=== PATIENT | male | born 1940 | race Caucasian/White ===

== ENCOUNTER → 2016-09-02 | Outpatient (CLI) | payer OTHER ==
[~2016-09-02] MED LIST: ACET-1311 PO; ASPEC325 PO; ATEN-173 PO; CIPR-255 PO; CLR10 PO; DOCU-94 PO; FINA5TAB PO; IBUP-1050 PO; LISI-461 PO; MULT-506 PO; OMEG10007 PO; POLY335019 PO; SIMV80TA2 PO; TAMS0.4C38 PO; TRIATAB3 PO
[2016-09-02 12:11] LABS: ALT/SGPT 37 U/L (12-78); BLOOD UREA NITROGEN 16 mg/dl (7-18); CARBON DIOXIDE 28 mmol/L (21-32); CHLORIDE 94 mmol/L (98-107); CHOLESTEROL 132 mg/dl (0-200); CREATININE 0.82 mg/dl (0.60-1.40); GLUCOSE 122 mg/dl (70-99); SODIUM 128 mmol/L (136-145); TRIGLYCERIDES 119 mg/dl (0-150); VERY LOW DENSITY LIPOPROT CALC 24 mg/dl
[2016-09-02 12:14] LABS: ALB/GLOB RATIO 1.2 (0.9-2); ALKALINE PHOSPHATASE 70 U/L (45-117); AST/SGOT 31 U/L (15-37); CALCIUM 8.6 mg/dl (8.5-10.1); HDL CHOLESTEROL 44 mg/dl; LDL CHOLESTEROL CALCULATED 64 mg/dl
== END | disposition home or self-care (01) ==
LOC: C.LABPVFM 07:19
PROVIDERS: ATTEND Nurse Practitioner
DX: I10 Essential (primary) hypertension (principal); E78.5 Hyperlipidemia, unspecified

== ENCOUNTER 2017-04-08 16:19 | Emergency (ER) | payer OTHER ==
[~2017-04-08] VITALS: Ht 167.6 cm; Wt 89.5 kg
[2017-04-08 16:22] VITALS: BP 164/95; TEMP 36.7; Ht 167.6 cm; Wt 89.5 kg
[2017-04-08] MEDS ORDERED: IBUPROFEN 200 MG TAB PO STA (16:40)
--- NOTE | 2017-04-08 16:57 | DIAGNOSTIC IMAGING REPORT ---
L ELBOW MIN 3 VIEWS ROUTINE CLINICAL HISTORY: Left elbow pain COMPARISON: None. DISCUSSION: There is a supracondylar process. No acute fractures are visualized. There are tiny calcific densities in the region of the distal triceps tendon. There is a small corticated density adjacent to the lateral epicondyle of distal humerus. This is felt to be old. IMPRESSION: 1. No acute fractures 2. Small age-indeterminate calcific densities in the region of the distal triceps tendon 3. Supracondylar process Electronically signed by: Luciano Matthews M.D. 04/08/2017 4:56 PM Dictated Date/Time: 04/08/2017 4:54 PM
[2017-04-08 17:49] VITALS: PULSE 62; O2SAT 95
--- NOTE | 2017-04-08 22:58 | EMERGENCY ROOM VISIT NOTE ---
History Report prepared by Alyse: Gloria Martinez Under the Supervision of: Dr. Quentin Whitfield M.D. First contact with patient: 16:35 Chief Complaint: ELBOW PAIN/INJURY Stated Complaint: LEFT ELBOW History of Present Illness The patient is a 76 year old male who presents to the Emergency Room with complaints of resolved left elbow pain that started prior to arrival. He reports he was on a ladder hanging [place] lights earlier today, when he reached out to steady himself, and heard a "pop". He did not injure anything else and states his elbow feels much better here in the ED, rating his discomfort as a 0/10 in severity. He denies any weakness or numbness in his left arm or hand. He can still move his fingers and has normal sensation in his left arm and hand. He does take daily medication for hypertension. 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 A total of 6 systems reviewed and were otherwise negative. Past Medical & Surgical Medical Problems: (1) Hypertension (2) Lumbar stenosis Family History Diabetes mellitus Heart disease Hypertension Social History Smoking Status: Never Smoker Alcohol Use: none Drug Use: none Marital Status: Housing Status: lives with family Occupation Status: retired Current/Historical Medications Scheduled Acetaminophen (Tylenol), 650 MG PO PRN Aspirin Enteric Coated (Ecotrin Or Generic *), 325 MG PO QAM Atenolol (Tenormin), 25 MG PO HS Ciprofloxacin Hcl (Cipro), 500 MG PO BID Docusate Sodium (Colace), 1 CAP PO HS Finasteride (Proscar), 5 MG PO QAM Fish Oil ([place]-3), 1 CAP PO QAM Ibuprofen (Advil), 400 MG PO PRN Lisinopril (Lisinopril), 1 TAB PO DAILY Loratadine (Claritin), 10 MG PO QAM Multivitamin (Multivitamin), 1 TAB PO QAM Polyethylene Glycol 3350 (Miralax), 17 GM PO QAM Simvastatin (Zocor), 80 MG PO QPM Tamsulosin Hcl (Flomax), 0.4 MG PO QPM Triamterene/Hctz (Triamterene/Hctz 37.5-25MG), 1 TAB PO DAILY Allergies Coded Allergies: No Known Allergies (Unverified , 02/02/16) Physical Exam Vital Signs Date Time Temp Pulse Resp B/P (MAP) Pulse Ox O2 Delivery O2 Flow Rate FiO2 04/08/17 17:49 62 20 95 04/08/17 16:22 36.7 66 18 164/95 95 Room Air Physical Exam Constitutional: Vital signs reviewed. Respiratory: Clear to auscultation bilaterally. Breath sounds are equal bilaterally. Cardiovascular: Regular rate and rhythm. No rubs or gallops. Musculoskeletal: Tenderness over left olecranon process with soft tissue swelling. Normal distal pulse. No peripheral edema. No lower extremity tenderness. Integumentary: No cyanosis. Neurological: The patient is awake and alert. No focal deficits. Motor and sensation intact throughout left arm. Psychiatric: Normal affect. Medical Decision & Procedures ER Provider Diagnostic Interpretation: Radiology results as stated below per my review and the radiologist's interpretation: L ELBOW MIN 3 VIEWS ROUTINE CLINICAL HISTORY: Left elbow pain COMPARISON: None. DISCUSSION: There is a supracondylar process. No acute fractures are visualized. There are tiny calcific densities in the region of the distal triceps tendon. There is a small corticated density adjacent to the lateral epicondyle of distal humerus. This is felt to be old. IMPRESSION: 1. No acute fractures 2. Small age-indeterminate calcific densities in the region of the distal triceps tendon 3. Supracondylar process Electronically signed by: Luciano Matthews M.D. 04/08/2017 4:56 PM Medications Administered Medications (Trade) Dose Ordered Sig/Tu Route Start Time Stop Time Status Last Admin Dose Admin Ibuprofen (Advil Tab) 400 mg NOW STAT PO 04/08/17 16:40 04/08/17 16:41 DC 04/08/17 16:46 400 MG ED Course 1637: The patient was evaluated in room D5. A complete history and physical exam was performed. 1640: Ibuprofen 400 mg PO. 1712: I reevaluated the patient. He is feeling well. I discussed his test results and discharge instructions and he will follow up with his Orthopedist. Medical Decision This is a 76-year-old male who presents with elbow pain. Differential diagnosis includes fracture, dislocation, strain, tendon injury. I did perform a limited focused review of portions of the patient's old chart on the electronic medical record. The patient has had no recent pertinent visits to this hospital. I did evaluate the patient as noted above. He is tender over the lacunar on process. There is no obvious deformity to the elbow. He has no other injury to the arm. He is able to extend and flex the elbow without any difficulty. I did order and personally review the patient's elbow x-rays as described above. I did discuss the test results with the patient. I did recommend the patient keep his arm in a sling until he could follow up with a orthopedic physician. He was discharged in good condition. He was given a sling. Medication Reconcilliation Current Medication List: was personally reviewed by me Blood Pressure Screening Patient's blood pressure: Elevated blood pressure Blood pressure disposition: Referred to PCP Impression Primary Impression: Injury of left elbow Scribe Attestation The scribe's documentation has been prepared under my direct and personally reviewed by me in its entirety. I confirm that the note above accurately reflects all work, treatment, procedures, and medical decision making performed by me. Departure Information Dispostion Home / Self-Care Referrals Huyen Dickens C.R.N.P (PCP) Patient Instructions My [facility] Additional Instructions You have been examined and treated today on an emergency basis only. This is not a substitute for, or an effort to provide, complete comprehensive medical care. It is impossible to recognize and treat all injuries or illnesses in a single emergency department visit. It is therefore important that you follow up closely with your orthopedic doctor. Call as soon as possible for an appointment. Return for worsening symptoms or if you develop swelling or pain to your hand or forearm or any other concerning symptoms. Keep your sling on until cleared by orthopedics. Problem Qualifiers Primary Impression: Injury of left elbow Encounter type: initial encounter Qualified Codes: S59.902A - Unspecified injury of left elbow, initial encounter
== END 2017-04-08 17:51 | disposition home or self-care (01) ==
LOC: C.EDB 16:20 → C.EDD 17:51
DX: S59.902A Unspecified injury of left elbow, initial encounter (principal); X58.XXXA Exposure to other specified factors, initial encounter; I10 Essential (primary) hypertension; Z79.82 Long term (current) use of aspirin; Z79.899 Other long term (current) drug therapy; Z83.3 Family history of diabetes mellitus; Z82.49 Family history of ischemic heart disease and other diseases of the circulatory system

== ENCOUNTER → 2017-09-15 | Outpatient (CLI) | payer OTHER ==
[2017-09-15 13:37] LABS: HEMOGLOBIN A1C 6.3 % (4.5-5.6)
[2017-09-15 13:50] LABS: BLOOD UREA NITROGEN 18 mg/dl (7-18); CALCIUM 8.6 mg/dl (8.5-10.1); CARBON DIOXIDE 26 mmol/L (21-32); CHOLESTEROL 142 mg/dl (0-200); CREATININE 0.93 mg/dl (0.60-1.40); GLUCOSE 110 mg/dl (70-99); POTASSIUM 3.9 mmol/L (3.5-5.1); SODIUM 128 mmol/L (136-145)
[2017-09-15 13:54] LABS: LDL CHOLESTEROL CALCULATED 71 mg/dl
== END | disposition home or self-care (01) ==
LOC: C.LABPVFM 07:26
PROVIDERS: ATTEND Nurse Practitioner
DX: I10 Essential (primary) hypertension (principal); E78.5 Hyperlipidemia, unspecified; R73.01 Impaired fasting glucose

== ENCOUNTER 2022-12-03 14:00 | Inpatient (IN) ==
[2022-12-03 14:24] LABS: Basophils # (auto) 0.04 K/uL (0-0.2); Basophils % (auto) 0.4 %; Eosinophils % (auto) 2.2 %; Hematocrit (blood only) 41.7 % (42.0-52.0); Hemoglobin 14.9 g/dl (14.0-18.0); Immature Granulocytes # (auto) 0.06 K/uL (0.01-0.20); Immature Granulocytes % (auto) 0.7 %; Lymphocytes # (auto) 1.53 K/uL (1.2-3.4); Lymphocytes % (auto) 16.6 %; Mean Corpuscular Hgb Conc 35.7 g/dL (32.0-36.0); Mean Corpuscular Volume 89.5 fL (80.0-100.0); Monocytes # (auto) 1.11 K/uL (0.11-0.59); Monocytes % (auto) 12.1 %; Neutrophils # (auto) 6.27 K/uL (1.40-6.50); Platelet Count 202 K/uL (130-400); RDW Coefficient of Variation 13.2 % (11.5-14.5); Red Blood Count 4.66 M/uL (4.70-6.10); White Blood Count 9.21 K/ul (4.8-10.8)
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
[2022-12-03 14:43] LABS: Albumin Globulin Ratio 1.4 (0.9-2); Albumin Level 4.6 gm/dl (3.4-5.0); BUN Creatinine Ratio 12.4 (10-20); Bilirubin,Total 0.7 mg/dl (0.2-1.0); Calcium 9.6 mg/dl (8.6-10.3); Creatinine Clr Calc Pharmacy 68.8 ml/min; Est GFR (African American) 93.6 ml/min; Est GFR (Non-African American) 80.8 ml/min; Globulin 3.2 gm/dl (2.5-4.0); Magnesium 1.6 mg/dl (1.7-2.4); Potassium 3.9 mmol/L (3.5-5.1); Total Protein 7.8 gm/dl (6.0-8.3)
[2022-12-03 14:48] LABS: Troponin I High Sensitivity 34.5 pg/ml (0-20)
[2022-12-03 15:23] LABS: Partial Thromboplastin Time 27.1 Seconds (21.0-31.0); Prothrombin Time 11.4 Seconds (9.0-12.0)
[2022-12-03] MEDS: MAGNESIUM SULFATE / D5W 1 GM/100 ML BAG IV SCH ×2 (15:31→16:14)
[2022-12-03 15:58] LABS: Lyme Ab IgG w/WB Rflx Positive (Negative); Lyme Ab IgM w/WB Rflx Equivocal (Negative)
--- NOTE | 2022-12-03 15:58 | Electrocardiogram Report ---
Test Reason : Blood Pressure : / mmHG Vent. Rate : 048 BPM Atrial Rate : 000 BPM P-R Int : 000 ms QRS Dur : 088 ms QT Int : 476 ms P-R-T Axes : 000 -12 076 degrees QTc Int : 425 ms Atrial fibrillation with slow ventricular response with premature ventricular or aberrantly conducted complexes Left ventricular hypertrophy Nonspecific ST abnormality Anterolateral leads Abnormal ECG When compared with ECG of 05-OCT-2018 08:33, Atrial fibrillation has replaced Sinus rhythm Left ventricular hypertrophy now present Nonspecific ST abnormality now present Confirmed by Onesimo Geller ([id number]) on 12/03/2022 3:58:25 PM Referred By: Confirmed By:Onesimo Geller
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
[2022-12-03] MEDS ORDERED: ATROPINE SULFATE 0.1 MG/ML 10ML SYR IV PRN (16:43)
[2022-12-03] MEDS: amLODIPine BESYLATE 5 MG TAB PO SCH (17:00)
[2022-12-03 17:33] LABS: Appearance Urine Clear (Clear); Bilirubin Urine Negative (Negative); Blood Urine Negative (Negative); Color Urine Yellow; Glucose Urine UA Negative (Negative); Ketones Urine Negative (Negative); Leukocyte Esterase Urine Negative (Negative); Nitrite Urine Negative (Negative); Protein Urine Negative (Negative); Specific Gravity Urine 1.004 (1.000-1.030); Urobilinogen Urine Negative (Negative); pH Urine 6.5 (4.5-7.5)
[2022-12-03] MEDS ORDERED: POLYETHYLENE (MIRALAX) 17 GM PACK PO PRN (18:44)
[2022-12-03] MEDS ORDERED: ACETAMINOPHEN 325 MG TAB PO PRN (18:44)
[2022-12-03] MEDS ORDERED: ALBUTEROL HFA 8 GM INHALER INH PRN (18:44)
[2022-12-03] MEDS ORDERED: cefTRIAXone SODIUM 2,000 MG in DEXTROSE 5% 50 ML IV SCH (19:00)
[2022-12-03 19:45] LABS: BUN Creatinine Ratio 12.3 (10-20); Calcium 9.4 mg/dl (8.6-10.3); Creatinine Clr Calc Pharmacy 73.8 ml/min; Est GFR (African American) 97.3 ml/min; Est GFR (Non-African American) 83.9 ml/min; Potassium 3.8 mmol/L (3.5-5.1)
[2022-12-03] MEDS: hydrALAZINE HCL 25 MG TAB PO SCH (20:02)
[2022-12-03] MEDS: APIXABAN 5 MG TABLET PO SCH (20:02)
[2022-12-03] MEDS: lisinopril 20 MG TAB PO SCH (20:02)
[2022-12-03] MEDS ORDERED: DOCUSATE SODIUM 100 MG CAP PO SCH (21:00)
[2022-12-03] MEDS ORDERED: SIMVASTATIN 80 MG TAB PO SCH (21:00)
[2022-12-03 23:38] LABS: BUN Creatinine Ratio 10.1 (10-20); Creatinine Clr Calc Pharmacy 50.2 ml/min; Est GFR (African American) 66.5 ml/min; Est GFR (Non-African American) 57.3 ml/min; Potassium 3.8 mmol/L (3.5-5.1)
[2022-12-04 06:15] LABS: Basophils # (auto) 0.05 K/uL (0-0.2); Basophils % (auto) 0.5 %; Eosinophils # (auto) 0.36 K/uL (0-0.50); Eosinophils % (auto) 3.4 %; Hematocrit (blood only) 37.6 % (42.0-52.0); Hemoglobin 13.5 g/dl (14.0-18.0); Immature Granulocytes % (auto) 0.9 %; Lymphocytes # (auto) 1.12 K/uL (1.2-3.4); Lymphocytes % (auto) 10.5 %; Mean Corpuscular Hemoglobin 32.4 pg (25.0-34.0); Mean Corpuscular Hgb Conc 35.9 g/dL (32.0-36.0); Mean Corpuscular Volume 90.2 fL (80.0-100.0); Mean Platelet Volume 9.5 fL (9.4-12.4); Monocytes % (auto) 11.2 %; Neutrophils # (auto) 7.87 K/uL (1.40-6.50); Neutrophils % (auto) 73.5 %; Platelet Count 196 K/uL (130-400); RDW Coefficient of Variation 13.2 % (11.5-14.5); RDW Standard Deviation 43.2 fL (36.4-46.3); Red Blood Count 4.17 M/uL (4.70-6.10)
[2022-12-04 06:24] LABS: Albumin Globulin Ratio 1.4 (0.9-2); Albumin Level 3.9 gm/dl (3.4-5.0); BUN Creatinine Ratio 16.8 (10-20); Bilirubin,Total 0.5 mg/dl (0.2-1.0); Calcium 9.2 mg/dl (8.6-10.3); Creatinine Clr Calc Pharmacy 62.3 ml/min; Est GFR (African American) 87.3 ml/min; Est GFR (Non-African American) 75.3 ml/min; Globulin 2.7 gm/dl (2.5-4.0); Magnesium 1.7 mg/dl (1.7-2.4); Potassium 3.9 mmol/L (3.5-5.1); Total Protein 6.6 gm/dl (6.0-8.3)
[2022-12-04] MEDS: APIXABAN 5 MG TABLET PO SCH (08:24)
[2022-12-04] MEDS: lisinopril 20 MG TAB PO SCH (08:25)
[2022-12-04] MEDS: hydrALAZINE HCL 25 MG TAB PO SCH (08:26)
[2022-12-04] MEDS: amLODIPine BESYLATE 5 MG TAB PO SCH (08:58)
[2022-12-04] MEDS ORDERED: ASPIRIN 81 MG ECTAB PO SCH (09:00)
[2022-12-04] MEDS ORDERED: MAGNESIUM OXIDE 400 MG TAB PO SCH (09:00)
[2022-12-04] MEDS ORDERED: FUROSEMIDE 20 MG TAB PO SCH (09:00)
--- NOTE | 2022-12-04 09:30 | XCELERA ---
[id number]
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
--- NOTE | 2022-12-04 13:15 | Discharge Summary ---
Date of Service December 04, 2022 Admission HPI Per Admitting Provider Santana Noyola is a 82-year-old male with a past medical history of CAD, hypertension, hyperlipidemia who is referred from his PCP for bradycardia and irregular heartbeat with no history of A-fib. Puma reports he is here for afib that he didn't realize he had and low sodium which was noted as an outpatient. Seems to have a hard time catching his breath last week or two. Was on prednisone for a viral URI 4 weeks ago, that mostly improved No chest pain or chest pressure NO SoB at rest, easily fatigued and some shortness of breath with exertion but ntoes it was worse with the smoke from the [facility] NO syncope or presyncope No fevers/chills/night sweats No tick bites No history of lyme disease, many tick bites in the past No history of bleeding problems Medical History: Reviewed Medications: Reviewed Surgical History: Reviewed Family history: Reviewed Allergies: Reviewed Social History: No tobacco use history Code Status: Full Code Admission Exam Per Admitting Provider General: A&Ox3. NAD. Cooperative. HEENT: Atraumatic, normocephalic. Vision and hearing grossly Pulm: CTAB A&P. -wheezes, -rales, -rhonchi. Symmetrical chest rise. No increased work of breathing. No respiratory distress. Cardiac: irir, bradycardic. Radial pulses intact and symmetrical. Abdominal: Nontender, nondistended, soft. BS present. Extremities: Moves all extremities equally. No rashes Principal Diagnosis New onset atrial fibrillation with slow ventricular response Discharge Exam General: Well-appearing, NAD Cardiovascular: Bradycardic, irregularly irregular rhythm, no M/R/G Pulmonary: CTAB, no W/R/R Abdomen: Soft, NT/ND, no guarding Extremities: Moving all extremities, ambulates with use of braces to help with bilateral foot drop Integumentary: No suspicious rash or lesion on exposed skin Neurologic: AAOx3, no focal deficits Psychiatric: Appropriate mood/affect Discharge Data Allergies Allergy/AdvReac Type Severity Reaction Status Date / Time No Known Allergies Allergy Verified 12/03/22 09:33 Consultations 12/03/22 15:41 ED Decision to Admit Stat 12/04/22 09:34 Consult Cardiology Routine Hospital Course (1) Atrial fibrillation with slow ventricular response: (2) Bradycardia: (3) Borderline results on serologic testing for Lyme disease: (4) CARRERA (dyspnea on exertion): (5) Hypertension: (6) Hyperlipidemia: (7) Hyponatremia: Plan Santana Noyola is a 82-year-old male with a past medical history of CAD, hypertension, hyperlipidemia who is referred from his PCP for bradycardia and irregular heartbeat with no history of A-fib. He was found to be in AF with slow ventricular response. See below. Admitted 12/03/22 and discharged 12/04/22. A-fib, new onset with slow ventricular response - Possible etiology of dyspnea on exertion EKG: A-fib with slow ventricular response. QTc 425. Nonspecific ST changes without territorial elevations/depression. Eliquis started - continue on discharge High-sensitivity troponin 34.5, repeat 34.2 Echo 12/04/22 notable for: Normal EF of 55 to 60%, normal LV structure and function, mild to moderate aortic regurgitation, moderate mitral regurgitation, mild tricuspid regurgitation Lyme IgG is positive with equivocal IgM. 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 Full Western blot pending. - Atenolol discontinued - Has appropriate increase in HR with exertion - Cardiology consulted: [facility] outpatient, continue Eliquis, stop ASA - F/u with cardiology Dr. 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 Treat for Lyme and monitor [facility]. If remains slow, may not have reversible conduction abnormality - Atenolol discontinued - F/u with cardiology Dr. Geller outpatient HTN - Discontinue atenolol given above bradycardia - Started and continue amlodipine added 5mg Continue lisinopril 20mg BID, hydralazine 75mg BID HLD Continue statin Acute on Chronic Hyponatremia Baseline sodium appears around [id number]. On admission sodium 124 with BSG 126. Improved to baseline 130 on fluid restriction inpatient - Has seen [facility] nephrology before, and w/ polydipsia in the past, Puma's notes he has been drinking a lot of water/gatorade lately - Urine sodium and osm would be c/w possible SIADH - Discussed minimizing salt to minimize drinking excessive fluids Total Time Total Time Spent Total Time Spent (In Minutes): 45 Total Time Includes: Examination of the Patient, Discharge Planning, Medication Reconciliation, Communication With Other Providers and Other (Review of notes, labs, tests) Discharge Plan Discharge Items Patient Disposition: Home - Self-Care Reason For Visit: AFIB, BRADYCARDIA Discharge Diagnosis: Atrial fibrillation with slow heart rate Activity: Resume your previous activity Non-emergency contact: Primary Care Provider and Motorboat Mechanic Inboard Call non-emergency contact if: your symptoms worsen Follow-up/Referrals: Huyen Dickens CRNP [Primary Care Provider] - 12/13/22 10:30 am (Follow up scheduled on 12/13/22 @ 10:30am) Onesimo Geller MD [Physician] - Diet: Regular Addtl Attending Provider Instructions: Take the new blood thinner medication (Eliquis) for the atrial fibrillation and stop the aspirin. The aspirin is no longer needed. Take the antibiotic doxycycline to treat Lyme disease. Take the new blood pressure medication amlodipine in addition to your other blood pressure medications and monitor your blood pressures. Stop the atenolol. Monitor your salt and fluid intake. You will be set up with a heart monitor next week. If you do not have that coordinated by Tuesday, call your PCP. You also will have a follow up appointment with the corrugator helper. If you do not have that coordinated date by Tuesday, call your PCP's office. Pending Studies at Discharge: No Stand-Alone Forms: My [facility] [employer], Smoking Cessation Medications and DC Order Prescriptions: New Eliquis 5 mg Tablet 5 mg PO BID Qty: 60 1RF amlodipine [Norvasc] 5 mg Tablet 5 mg PO QAM Qty: 30 1RF doxycycline hyclate 100 mg tablet 100 mg PO BID 21 Days Qty: 42 0RF Continued simvastatin 80 mg tablet See Rx Instructions .ROUTE .COMPLEX Qty: 90 3RF Dose Instruction: Take 1 tablet by mouth in the evening Rx Instructions: Take 1 tablet by mouth in the evening albuterol sulfate 90 mcg/actuation HFA aerosol inhaler 2 puff inhalation QID PRN (Reason: shortness of breath or wheezing) Qty: 6.7 3RF [id number] serr [Osteo Bi-Flex (5-Loxin)] 1,500-400-100 mg-unit-mg tablet 1 tab PO DAILY Rx Instructions: give after food/meal magnesium oxide 400 mg magnesium capsule 0 mg PO DAILY Rx Instructions: says he'll be getting a new script for this one lisinopril 20 mg tablet 20 mg PO BID Qty: 60 2RF furosemide 20 mg tablet 20 mg PO DAILY Qty: 30 2RF Rx Instructions: pt says they plan to increase to 40 mg hydralazine 25 mg tablet 75 mg PO BID Qty: 90 2RF polyethylene glycol 3350 [Miralax] 17 gram Powder In Packet 17 g PO QAM PRN (Reason: Constipation) docusate sodium [Colace] 100 mg Capsule 100 mg PO HS multivitamin Capsule 1 cap PO QAM omega 2-flm-jks-fish oil [Fish Oil] 1,000 mg (120 mg-180 mg) Capsule 2 cap PO QAM acetaminophen [Tylenol] 325 mg Tablet 650 mg PO Q6H PRN (Reason: Pain) Discontinued atenolol 25 mg tablet See Rx Instructions .ROUTE .COMPLEX Qty: 90 3RF Dose Instruction: TAKE 1 TABLET BY MOUTH ONCE DAILY IN THE MORNING Rx Instructions: TAKE 1 TABLET BY MOUTH ONCE DAILY IN THE MORNING aspirin 81 mg Tablet,Delayed Release (Dr/Ec) 81 mg PO QAM Discharge Orders: Discharge Order (Routine); Ordered 12/04/22 Ordered By: Kristina Morales/Other Patient Handouts: Apixaban Oral Tablet, Doxycycline Oral Tablet, Amlodipine Oral Tablet, AFib Dc Admission Data Admit Date/Time: 12/03/22 16:43 Attending Provider: Kristina Myrick Admit Provider: Jose Maher Primary Care Provider: Huyen Dickens Other Providers: Jose Maher ; [facility] ; Onesimo Geller Other Interventions: Discharge Summary Assessment (RN) Last Done: 12/04/22 14:36 Coding Level of Care Code 59064 INP/OBS DISCH >30 MIN Diagnoses Atrial fibrillation with slow ventricular response I48.91 Bradycardia R00.1 Borderline results on serologic testing for Lyme disease R76.8 CARRERA (dyspnea on exertion) R06.09 Hypertension I10 Hyperlipidemia E78.5 Hyponatremia E87.1
[2022-12-08 13:47] LABS: 18KDIGG Band NON-REACTIVE; 23KDIGG Band NON-REACTIVE; 23KDIGM Band REACTIVE; 28KDIGG Band NON-REACTIVE; 30KDIGG Band NON-REACTIVE; 39KDIGG Band REACTIVE; 39KDIGM Band NON-REACTIVE; 41KDIGG Band REACTIVE; 41KDIGM Band NON-REACTIVE; 45KDIGG Band REACTIVE; 58KDIGG Band REACTIVE; 66KDIGG Band NON-REACTIVE; 93KDIGG Band REACTIVE; Lyme Antibodies, WB IgG POSITIVE (NEGATIVE); Lyme Antibodies, WB IgM NEGATIVE (NEGATIVE)
== END 2022-12-04 15:00 | disposition home or self-care (01) | DRG 309 ==
LOC: ED 14:00 → SUATTDRO 16:43 → 2S 16:43

== ENCOUNTER 2024-11-18 10:42 | Inpatient (IN) ==
--- NOTE | 2024-11-18 11:30 | XRay Report ---
XR chest 1V portable CLINICAL HISTORY: Dyspnea. COMPARISON STUDY: Chest radiograph February 28, 2023. FINDINGS: A left subclavian pacer is in place. Postoperative findings within the spine are partially imaged. Cardiomegaly is again noted. Elevation of the right hemidiaphragm is unchanged. There is no p neumothorax or definite pleural effusion. Interstitial thickening and multifocal patchy right lung ai rspace opacities are present. IMPRESSION: 1. Cardiomegaly with interstitial thickening suggestive of mild pulmonary edema. 2. Patchy right lung airspace opacities which could represent superimposed pneumonia or alveolar pulm onary edema. Radiographic follow-up is recommended. ACT 112: Negative or not required by law. Electronically signed by: Arvind Moran M.D. 11/18/2024 11:29 AM
[2024-11-18 11:31] LABS: Hematocrit (blood only) 39.7 % (42.0-52.0); Hemoglobin 13.8 g/dl (14.0-18.0); Immature Granulocytes # (auto) 0.12 K/uL (0.01-0.20); Immature Granulocytes % (auto) 1.4 %; Mean Corpuscular Hemoglobin 31.5 pg (25.0-34.0); Mean Corpuscular Volume 90.6 fL (80.0-100.0); Platelet Count 243 K/uL (130-400); RDW Standard Deviation 48.2 fL (36.4-46.3); Red Blood Count 4.38 M/uL (4.70-6.10); White Blood Count 8.79 K/ul (4.8-10.8)
--- NOTE | 2024-11-18 11:40 | Emergency Department Note ---
Impression & Plan Acute CHF, Hypomagnesemia, Elevated troponin, Elevated brain natriuretic peptide (BNP) level, Pulmonary edema ED Provider Note HISTORY OF PRESENT ILLNESS: Patient is an 84-year-old male presenting with shortness of breath. Patient reports he has been having progressively worsening shortness of breath over the last few days. reports that he was finally agreeable to coming to get evaluated this morning. Patient reports that he is only able to walk up half of his stairs to the second floor of his house before having to stop because he so winded. He is only able to walk a short distance before having to stop to catch his breath. Reports this is new for him over the last few days. Denies any DVT or PE history. He does report that his lower legs have been swollen, but thinks this is secondary to his gabapentin dosing changed over the last few weeks. He denies being on a diuretic. He denies any chest pain. He reports that shortness of breath is most notable with any sort of exertion. He has had a nonproductive cough. Denies any fevers. Denies any recent sick contact exposures. Patient is on Eliquis for history of A-fib. He does report that he has held his Eliquis for the last 3 days, as he is scheduled for a procedure tomorrow. ROS: as above PHYSICAL EXAM: Constitutional: Patient appears in no acute distress. HENT: Head: Normocephalic and atraumatic. Eyes: EOMI, PERRL Mouth/Throat: Mucous membranes moist. Neck: Trachea midline. Neck supple. Cardiovascular: Paced rhythm. No murmurs, rubs or gallops. Intact distal pulses. Pulmonary/Chest: No respiratory distress. Breath sounds clear and equal bilaterally. Coarse breath sounds bilaterally. Abdominal: Abdomen soft, no tenderness, rebound or guarding. Musculoskeletal: No tenderness or deformity noted. +3 pitting edema of bilateral lower extremities extending to the tibias. Skin: Warm and dry. No rash, erythema, pallor or cyanosis Psychiatric: Appropriate mood and affect for situation. Neurological: Alert and keenly responsive. CN II-XII grossly intact, moving all extremities equally and fully. MDM: - Vitals signs showed hypertension - History obtained via patient. History as above. - Chronic conditions affecting care: HTN; HLD; tachy-vidhya syndrome (s/p pacemaker placement); Afib; CAD - Differential diagnoses include, but are not limited to: Congestive heart failure; acute coronary syndrome; COPD/asthma exacerbation; pulmonary edema; pulmonary embolism; pneumonia; pneumothorax; viral syndrome - Order placed for continuous cardiac monitoring. At this time, monitor showed rate of 68 bpm with paced rhythm, per my interpretation. - External medical records reviewed. Primary care visit note date 10/25/2024 was reviewed. Patient was seen for an acute visit for sore throat for the past week. He was diagnosed with pharyngitis which was likely viral in etiology. - EKG image interpreted by myself showed atrial paced rhythm. Rate 64 bpm. - Laboratory workup interpreted by myself showed normal WBC; elevated INR (1.2); hyperglycemia (glucose 148) with normal anion gap; hypomagnesemia (Mg 1.5); elevated total bilirubin (1.2) with normal AST/ALT; elevated troponin (20.7); elevated BNP (1023) - UA negative for infection - COVID/flu/RSV negative - CXR image reviewed by myself shows pulmonary edema, per my interpretation. Radiology notes cardiomegaly with interstitial thickening suggestive of pulmonary edema. Also noted to have some right airspace opacity concerning for either alveolar pulmonary edema or superimposed pneumonia. - Patient given 1g IV magnesium for electrolyte replacement. Given 60 mg IV lasix for diuresis. - Patient is Lasix myriam. He has never had an echocardiogram to assess for heart failure diagnosis. Given his significant fluid overload status, will admit for further evaluation and echocardiogram. - Discussion was had with case management specialist about patient's case and need for admission - Hospitalist consulted for admission - [facility] and [facility]. ASSESSMENT AND PLAN: Diagnosis: Acute CHF; hypomagnesemia; elevated troponin; elevated BNP; pulmonary edema Plan: admit Past Med/Surg History Problem List (Updated 11/18/24 @ 12:51 by Pau Kerr MD) Pulmonary edema (Acute) Elevated brain natriuretic peptide (BNP) level (Acute) Elevated troponin (Acute) Hypomagnesemia (Acute) Acute CHF (Acute) Pharyngitis Moderate mitral regurgitation Aortic regurgitation Myofascial neck pain Radiculopathy, cervical region Pacemaker [employer], follows with [facility] cardio Radicular pain in right arm Neck pain on right side Anticoagulant long-term use Tachy-vidhya syndrome Atrial fibrillation with slow ventricular response Screening for abdominal aortic aneurysm Benign prostatic hyperplasia with urinary obstruction (Acute) Encounter for pre-operative examination Pre-diabetes CAD (coronary artery disease) (Acute) Hyperlipidemia (Chronic) Hypertension (Chronic) CARRERA (dyspnea on exertion) (Acute) S/P placement of cardiac pacemaker 02/2023 [facility] Peripheral edema (Chronic) Lumbar stenosis (Chronic) Medical History Hyponatremia H/o Lyme disease Anemia Diverticulosis of colon History of malignant melanoma of skin Foot drop Myocardial Infarction Surgical History Hx of tonsillectomy History of carpal tunnel release Fusion of spine History of prostate biopsy Hx of transurethral resection of prostate History of colonoscopy History of cardiac cath Family History Father Myocardial infarction Brother Myocardial infarction Denies family history of Ovarian cancer Prostate cancer Breast cancer Colorectal cancer Social History Smoking Status: Never smoker Second Hand Exposure: No; Do You Dip or Chew Tobacco: No; Hx Alcohol Use: Yes Alcohol type: beer Alcohol Intake Frequency: Monthly or Less Alcohol Intake Frequency Comment: When he goes to camp. Hx Substance Use: No Preferred Language: Upper Sorbian Communication Ability: Effective Visual Impairment: No Limitations Hearing Ability: Use of Hearing Aid Manufacturing Maintenance Manager Required: No Beliefs That Will Affect Care: None marital status: Current Living Situation: Spouse current occupational status: retired How many Children do You have: 2 Feels Safe at Home: Yes Childhood Exposure to Second-Hand Smoke: Yes Diet: regular caffeine: Yes during the past year weight has: remained stable Dental Care, Regularly: Yes Physical Activity Frequency: 1-2 Times per Week Seatbelt Use: always Sunscreen Use: Yes Do you think of yourself as: straight/heterosexual Sexual Activity: has been sexually active, but not for at least 12 months Gender Identity: Male Assistive Devices: Brace/Splint/Immobilizer, Cane, Denture - Upper, Denture - Lower, Glasses and Hearing Aid - Bilateral Allergies Allergies Allergy/AdvReac Type Severity Reaction Status Date / Time No Known Allergies Allergy Verified 10/25/24 13:30 Home Meds Home Medications Medication Instructions Recorded Confirmed docusate sodium 100 mg capsule 100 mg PO HS 10/03/18 11/18/24 (Colace) multivitamin 0.5 cap PO QAM 10/03/18 11/18/24 polyethylene glycol 3350 17 gram 17 g PO QAM PRN Constipation 10/03/18 11/18/24 oral powder packet (Miralax) acetaminophen 325 mg tablet 650 mg PO Q6H PRN Pain 10/19/18 11/18/24 (Tylenol) furosemide 20 mg tablet 40 mg PO QAM 04/13/23 11/18/24 diclofenac sodium 1 % topical gel 2 g topical TID PRN Pain 10/04/24 11/18/24 (Voltaren Arthritis Pain) magnesium oxide 400 mg PO DAILY 10/04/24 11/18/24 apixaban 5 mg tablet (Eliquis) 5 mg PO BID 11/18/24 11/18/24 Previous Rx's Medication Instructions Recorded albuterol sulfate 90 mcg/actuation 2 puff inhalation QID PRN 12/03/22 aerosol inhaler shortness of breath or wheezing #6.7 grams atorvastatin 40 mg tablet 40 mg PO DAILY #90 tabs 12/16/23 hydralazine 25 mg tablet 25 mg PO BID #180 tabs 05/04/24 metoprolol succinate 50 mg 50 mg PO DAILY #90 tabs 05/04/24 tablet,extended release 24 hr lisinopril 20 mg tablet 20 mg PO BID #180 tabs 06/22/24 gabapentin 300 mg capsule 300 mg PO BID #60 caps 10/04/24 Results & Data (ED) Vital Signs Vital Signs - 24 hr 11/18/24 10:50 11/18/24 11:11 11/18/24 11:38 Temperature 36.1 C L Temperature Source Temporal Artery Scan Pulse Rate 81 68 Pulse Rate [Apical] Respiratory Rate 20 20 Respiratory Effort / Characteristics Respiratory Depth Blood Pressure 166/105 H Blood Pressure [Left Arm] Blood Pressure Mean 125 Blood Pressure Mean [Left Arm] Pulse Oximetry 95 94 96 Oxygen Delivery Method Room Air Room Air Sepsis Recent Fever Within 48 Hours No Sepsis New/Unexplained Change in Mental Status N/A Sepsis Action Taken by Nursing No Action Required 11/18/24 11:40 07/06/25 11:59 Temperature Temperature Source Pulse Rate 61 Pulse Rate [Apical] 65 Respiratory Rate 17 Respiratory Effort / Characteristics Non-Labored Spontaneous Respiratory Depth Normal Blood Pressure Blood Pressure [Left Arm] 162/107 H Blood Pressure Mean Blood Pressure Mean [Left Arm] 125 Pulse Oximetry 91 Oxygen Delivery Method Room Air Sepsis Recent Fever Within 48 Hours Sepsis New/Unexplained Change in Mental Status Sepsis Action Taken by Nursing Laboratory Data 11/18/24 11:15 11/18/24 11:15 Lab Results 11/18/24 11/18/24 11/18/24 Range/Units 11:15 11:42 12:24 WBC 8.79 (4.8-10.8) K/ul RBC 4.38 L (4.70-6.10) M/uL Hgb 13.8 L (14.0-18.0) g/dl Hct 39.7 L (42.0-52.0) % MCV 90.6 (80.0-100.0) fL MCH 31.5 (25.0-34.0) pg MCHC 34.8 (32.0-36.0) g/dL RDW Std Deviation 48.2 H (36.4-46.3) fL RDW Coeff of Magdalena 14.6 H (11.5-14.5) % Plt Count 243 (130-400) K/uL MPV 8.8 L (9.4-12.4) fL Immature Gran % (Auto) 1.4 % Neut % (Auto) 76.8 % Lymph % (Auto) 7.8 % Mcdonald % (Auto) 10.9 % Eos % (Auto) 2.6 % Baso % (Auto) 0.5 % Neut # (Auto) 6.75 H (1.40-6.50) K/uL Lymph # (Auto) 0.69 L (1.20-3.40) K/uL Mcdonald # (Auto) 0.96 H (0.11-0.59) K/uL Eos # (Auto) 0.23 (0.00-0.50) K/uL Baso # (Auto) 0.04 (0.00-0.20) K/uL Immature Gran # (Auto) 0.12 (0.01-0.20) K/uL PT 13.1 H (9.0-12.0) Seconds INR 1.2 H (0.9-1.1) Sodium 120 L (136-145) mmol/L Potassium 3.7 (3.5-5.1) mmol/L Chloride 87 L (98-107) mmol/L Carbon Dioxide 24 (21-32) mmol/L Anion Gap 9 (3-11) BUN 15 (6-23) mg/dl Creatinine 0.84 (0.6-1.4) mg/dl Est Cr Clr Drug Dosing Not Reportable eGFR 87.07 BUN/Creatinine Ratio 17.9 (10-20) Glucose 148 H (70-99(Fasting)) mg/dl Calcium 8.8 (8.6-10.3) mg/dl Magnesium 1.5 L (1.7-2.4) mg/dl Total Bilirubin 1.2 H (0.2-1.0) mg/dl AST 28 (13-39) U/L ALT 23 (7-52) U/L Alkaline Phosphatase 103 (34-104) U/L Troponin I High Sens 20.7 H (0-20) pg/ml B-Natriuretic Peptide 1023 H (0-100) pg/ml Total Protein 7.3 (6.0-8.3) gm/dl Albumin 3.9 (3.4-5.0) gm/dl Globulin 3.4 (2.5-4.0) gm/dl Albumin/Globulin Ratio 1.1 (0.9-2) Urine Color Yellow Urine Appearance Clear (Clear) Urine pH 7.5 (4.5-7.5) Ur Specific [place] 1.008 (1.000-1.030) Urine Protein Trace H (Negative) Urine Glucose (UA) Negative (Negative) Urine Ketones Negative (Negative) Urine Blood Negative (Negative) Urine Nitrite Negative (Negative) Urine Bilirubin Negative (Negative) Urine Urobilinogen Negative (Negative) Ur Leukocyte Esterase Negative (Negative) Urine WBC (Auto) 0-5 (0-5) /hpf Urine RBC (Auto) 3-5 H (0-2) /hpf U Hyaline Cast (Auto) 0-2 (0-2) /lpf U Epithel Cells (Auto) 0-2 (0-2) /hpf Urine Bacteria (Auto) None Seen (None Seen) Urine Comment SARS-CoV-2 (PCR) NEGATIVE (Negative) Influenza Type A (PCR) Negative (Neg) Influenza Type B (PCR) Negative (Neg) RSV (RT-PCR) Negative (Neg) Administered Medications Magnesium Sulfate/Dextrose (Magnesium Sulfate / D5w) 1 gm in 100 mls @ 100 mls/hr IV NOW STA Stop: 11/18/24 13:07 Last Admin: 11/18/24 12:20 Dose: 100 mls/hr Documented By: ROBBIN Discontinued Medications Furosemide (Furosemide 40 Mg/4 Ml Vial) 60 mg IV ONE ONE Stop: 11/18/24 12:09 Last Admin: 11/18/24 12:20 Dose: 60 mg Documented By: AMS Imaging Data Radiologist's Impression: Chest X-Ray 11/18/24 10:56 XR chest 1V portable CLINICAL HISTORY: Dyspnea. COMPARISON STUDY: Chest radiograph February 28, 2023. FINDINGS: A left subclavian pacer is in place. Postoperative findings within the spine are partially imaged. Cardiomegaly is again noted. Elevation of the right hemidiaphragm is unchanged. There is no pneumothorax or definite pleural effusion. Interstitial thickening and multifocal patchy right lung airspace opacities are present. IMPRESSION: 1. Cardiomegaly with interstitial thickening suggestive of mild pulmonary edema. 2. Patchy right lung airspace opacities which could represent superimposed pneumonia or alveolar pulmonary edema. Radiographic follow-up is recommended. ACT 112: Negative or not required by law. Electronically signed by: Arvind Moran M.D. 11/18/2024 11:29 AM Discharge Plan Visit Data Chief Complaint: Shortness of Breath/Dyspnea Stated Complaint: SOB ED Provider: Pau Kerr Discharge Problem: Acute CHF, Hypomagnesemia, Elevated troponin, Elevated brain natriuretic peptide (BNP) level, Pulmonary edema Condition: Fair Forms Stand Alone Forms: My [employer] Prescriptions Prescriptions: No Action diclofenac sodium [Voltaren Arthritis Pain] 1 % gel 2 g topical TID PRN (Reason: Pain) Rx Instructions: apply to single elbow, wrist or hand; for hand includes palm/fingers/back of hand gabapentin 300 mg capsule 300 mg PO BID Qty: 60 3RF Patient Comments: 11/18- per pt he hasn't taking medication in a couple days due to fluid retention in leg albuterol sulfate 90 mcg/actuation HFA aerosol inhaler 2 puff inhalation QID PRN (Reason: shortness of breath or wheezing) Qty: 6.7 3RF furosemide 20 mg tablet 40 mg PO QAM magnesium oxide 400 mg magnesium capsule 400 mg PO DAILY atorvastatin 40 mg tablet 40 mg PO DAILY Qty: 90 3RF Rx Instructions: pt transitioning to this statin hydralazine 25 mg tablet 25 mg PO BID Qty: 180 2RF metoprolol succinate 50 mg tablet extended release 24 hr 50 mg PO DAILY Qty: 90 3RF lisinopril 20 mg tablet 20 mg PO BID Qty: 180 2RF polyethylene glycol 3350 [Miralax] 17 gram Powder In Packet 17 g PO QAM PRN (Reason: Constipation) docusate sodium [Colace] 100 mg Capsule 100 mg PO HS multivitamin Capsule 0.5 cap PO QAM acetaminophen [Tylenol] 325 mg Tablet 650 mg PO Q6H PRN (Reason: Pain) Eliquis 5 mg tablet 5 mg PO BID Patient Comments: 11/18- per pt last time he took was on the 3rd. Stopped due to upcoming procedure on 11/19 Referrals Referrals: Huyen Dickens CRNP [Primary Care Provider] -
[2024-11-18 11:48] LABS: Alanine Aminotransferase 23 U/L (7-52); Albumin Globulin Ratio 1.1 (0.9-2); Alkaline Phosphatase 103 U/L (34-104); Anion Gap 9 (3-11); Bilirubin,Total 1.2 mg/dl (0.2-1.0); Blood Urea Nitrogen 15 mg/dl (6-23); Calcium 8.8 mg/dl (8.6-10.3); Carbon Dioxide 24 mmol/L (21-32); Chloride 87 mmol/L (98-107); Globulin 3.4 gm/dl (2.5-4.0); Glucose 148 mg/dl (70-99(Fasting)); Magnesium 1.5 mg/dl (1.7-2.4); Potassium 3.7 mmol/L (3.5-5.1); Sodium 120 mmol/L (136-145); Total Protein 7.3 gm/dl (6.0-8.3)
--- NOTE | 2024-11-18 11:56 | Electrocardiogram Report ---
Test Reason : Blood Pressure : */* mmHG Vent. Rate : 64 BPM Atrial Rate : 64 BPM P-R Int : 178 ms QRS Dur : 162 ms QT Int : 472 ms P-R-T Axes : -28 -26 153 degrees QTcB Int : 486 ms AV dual-paced rhythm Abnormal ECG When compared with ECG of 12-Aug-2023 08:30, Vent. rate has decreased by 7 bpm Confirmed by Wilberto Alexandra ([id number]) on 11/18/2024 11:55:54 AM Referred By: Confirmed By: Wilberto Alexandra
[2024-11-18 12:00] LABS: INR 1.2 (0.9-1.1); Prothrombin Time 13.1 Seconds (9.0-12.0)
[2024-11-18] MEDS: FUROSEMIDE 40 MG/4 ML VIAL IV ONE (12:20)
[2024-11-18] MEDS: MAGNESIUM SULFATE / D5W 1 GM/100 ML BAG IV STA (12:20)
[2024-11-18 12:25] LABS: Influenza A virus by PCR Negative (Neg); Influenza B virus by PCR Negative (Neg); SARS CoV2 RNA(COVID-19) Ceph NEGATIVE (Negative)
[2024-11-18 12:43] LABS: Appearance Urine Clear (Clear); Bacteria Urine Automated None Seen (None Seen); Cast Urine Automated 0-2 /lpf (0-2); Epithelial Cell Urine Auto 0-2 /hpf (0-2); Glucose Urine UA Negative (Negative); WBC Urine Automated 0-5 /hpf (0-5)
--- NOTE | 2024-11-18 13:03 | History & Physical Report ---
Date of Service November 18, 2024 Assessment & Plan (1) Heart failure with preserved ejection fraction: (2) Elevated troponin: (3) Benign prostatic hyperplasia with urinary obstruction: Plan 84-year-old male presents for shortness of breath found to have chest x-ray changes consistent with acute heart failure preserved ejection fraction exacerbation, possible aspiration pneumonia. Patient also severe hyponatremia with a sodium of 120. He is on outpatient diuretic therapy. He however appears volume overloaded on presentation. #Acute heart failure preserved ejection fraction. Patient appears volume at presentation we will continue diuretic therapy. Will discontinue his gabapentin at this point in time. Patient has a history of atrial fibrillation with tachybradycardia syndrome and a dual-chamber pacemaker. He is currently in a paced rhythm and anticoagulated with apixaban. Repeat echocardiogram #Severe hyponatremia. Patient will have serum and urine osmolality. Urine testing will be skewed because of daily furosemide use. Repeat chemistry will be checked in the afternoon of 11/18 #Elevated troponin these will be trended likely or demand ischemia at this time, for his coronary artery disease will continue on his hypertensive medication treatments which is lisinopril hydralazine and metoprolol. For cardioprotective effects patient is on atorvastatin 40 patient states he stopped aspirin therapy on the recommendation of cardiology when he started his apixaban therapy #BPH patient is currently without urinary symptoms DVT prevention will be as apixaban therapy for his atrial fibrillation History of Present Illness Primary Care Provider: IRMA Sinha 84-year-old male presenting with shortness of breath found to have what appears to be heart failure possibly right-sided pneumonia and severe hyponatremia. Patient states that he began having increasing shortness of breath and peripheral swelling after having his gabapentin increased at his last pain management appointment. Likely similar October 04. Patient has a history of A-fib with tachybradycardia syndrome requiring a dual-chamber pacemaker, coronary artery disease hypertension BPH prediabetes and lumbar stenosis. Patient's was very concerned about him and wanted to call the ambulance with the patient refused C7 was brought in by private vehicle. Patient was given furosemide and magnesium in the emergency department and recommended for admission. Allergies Allergy/AdvReac Type Severity Reaction Status Date / Time No Known Allergies Allergy Verified 10/25/24 13:30 Home Medications Medication Instructions Recorded Confirmed Type docusate sodium 100 mg capsule 100 mg PO HS 10/03/18 11/18/24 History (Colace) multivitamin 0.5 cap PO QAM 10/03/18 11/18/24 History polyethylene glycol 3350 17 gram 17 g PO QAM PRN Constipation 10/03/18 11/18/24 History oral powder packet (Miralax) acetaminophen 325 mg tablet 650 mg PO Q6H PRN Pain 10/19/18 11/18/24 History (Tylenol) albuterol sulfate 90 mcg/actuation 2 puff inhalation QID PRN 12/03/22 11/18/24 Rx aerosol inhaler shortness of breath or wheezing #6.7 grams furosemide 20 mg tablet 40 mg PO QAM 04/13/23 11/18/24 History atorvastatin 40 mg tablet 40 mg PO DAILY #90 tabs 12/16/23 11/18/24 Rx hydralazine 25 mg tablet 25 mg PO BID #180 tabs 05/04/24 11/18/24 Rx metoprolol succinate 50 mg 50 mg PO DAILY #90 tabs 05/04/24 11/18/24 Rx tablet,extended release 24 hr lisinopril 20 mg tablet 20 mg PO BID #180 tabs 06/22/24 11/18/24 Rx diclofenac sodium 1 % topical gel 2 g topical TID PRN Pain 10/04/24 11/18/24 History (Voltaren Arthritis Pain) gabapentin 300 mg capsule 300 mg PO BID #60 caps 10/04/24 11/18/24 Rx magnesium oxide 400 mg PO DAILY 10/04/24 11/18/24 History apixaban 5 mg tablet (Eliquis) 5 mg PO BID 11/18/24 11/18/24 History Past Med/Surg History Problem List (Updated 11/18/24 @ 13:00 by Quentin Boothe MD) Heart failure with preserved ejection fraction Pulmonary edema (Acute) Elevated brain natriuretic peptide (BNP) level (Acute) Elevated troponin (Acute) Hypomagnesemia (Acute) Acute CHF (Acute) Pharyngitis Moderate mitral regurgitation Aortic regurgitation Myofascial neck pain Radiculopathy, cervical region Pacemaker [employer], follows with [facility] Radicular pain in right arm Neck pain on right side Anticoagulant long-term use Tachy-vidhya syndrome Atrial fibrillation with slow ventricular response Screening for abdominal aortic aneurysm Benign prostatic hyperplasia with urinary obstruction (Acute) Encounter for pre-operative examination Pre-diabetes CAD (coronary artery disease) (Acute) Hyperlipidemia (Chronic) Hypertension (Chronic) CARRERA (dyspnea on exertion) (Acute) S/P placement of cardiac pacemaker 02/2023 [facility] Peripheral edema (Chronic) Lumbar stenosis (Chronic) Medical History Hyponatremia H/o Lyme disease Anemia Diverticulosis of colon History of malignant melanoma of skin Foot drop Myocardial Infarction Surgical History Hx of tonsillectomy History of carpal tunnel release Fusion of spine History of prostate biopsy Hx of transurethral resection of prostate History of colonoscopy History of cardiac cath Family History Father Myocardial infarction Brother Myocardial infarction Denies family history of Ovarian cancer Prostate cancer Breast cancer Colorectal cancer Social History Smoking Status: Never smoker Second Hand Exposure: No; Do You Dip or Chew Tobacco: No; Hx Alcohol Use: Yes Alcohol type: beer Alcohol Intake Frequency: Monthly or Less Alcohol Intake Frequency Comment: When he goes to camp. 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 Beliefs That Will Affect Care: None marital status: Current Living Situation: Spouse current occupational status: retired How many Children do You have: 2 Feels Safe at Home: Yes Childhood Exposure to Second-Hand Smoke: Yes Diet: regular caffeine: Yes during the past year weight has: remained stable Dental Care, Regularly: Yes Physical Activity Frequency: 1-2 Times per Week Seatbelt Use: always Sunscreen Use: Yes Do you think of yourself as: straight/heterosexual Sexual Activity: has been sexually active, but not for at least 12 months Gender Identity: Male Assistive Devices: Brace/Splint/Immobilizer, Cane, Denture - Upper, Denture - Lower, Glasses and Hearing Aid - Bilateral Review of Systems Review of Systems: Mild distress and fatigue marked dyspnea on exertion no headache, no visual changes no speech or swallowing issues no chest pain, pressure or palpitations Not short of breath at rest but worse with movement no abdominal pain, nausea or vomiting, diarrhea or constipation no dysuria, hematuria or frequency no focal joint pain significant increase in lower extremity swelling Chronic daily neck and back pain no bruising, bleeding or rashes no focal signs of weakness or numbness or altered sensation no complaints of anxiety or depression.. Physical Exam Physical Exam: The patient appeared well nourished and normally developed. Vital signs as documented. Head exam is normocephalic atraumatic Neck is 2+ JVD, thyromegaly, or carotid bruits. Lungs are diminished at the bases with coarse breath sounds bilaterally Cardiac exam, Rhythm is regular.. Systolic murmurs are present Abdominal exam reveals normal bowel sounds, soft non tender, no masses Extremities his bilateral braces on his lower legs both are with 2+ edema to the knees Neurologic exam is alert and oriented, no focal loss of strength or sensation Skin is without bruises or rashes Psychologically is without concerns for anxiety or depression.. Results & Data Results & Data Vital Signs (Past 12 Hours) Vital Signs Temp Pulse Pulse Resp BP BP Pulse Ox 11/18/24 11:59 61 11/18/24 11:40 65 17 162/107 H 91 11/18/24 11:38 96 11/18/24 11:11 68 20 94 11/18/24 10:50 97.0 F L 81 20 166/105 H 95 O2 Del Method 11/18/24 11:59 11/18/24 11:40 Room Air 11/18/24 11:38 Room Air 11/18/24 11:11 Room Air 11/18/24 10:50 Laboratory Results Reviewed CBC reviewed chemistry severe hyponatremia hypomagnesemia Reviewed troponin mild elevation Reviewed chest x-ray right-sided changes perhaps pneumonia or perhaps heart failure Reviewed EKG dual paced rhythm Code Status & VTE Plan VTE Prophylaxis Plan VTE Prophylaxis will be ordered: Yes PG Care Time/CCT Total # of Minutes Spent Total Time Spent with Patient: Total time spent is greater than 50% in coordination of care (as documented) at patient's floor/unit and/or counseling patient: Coding Level of Care Code 41501 INT INP/OBS CARE 3/75MIN Diagnoses Heart failure with preserved ejection fraction I50.30 Elevated troponin R79.89 Benign prostatic hyperplasia with urinary obstruction N40.1; N13.8
[2024-11-18] MEDS ORDERED: ONDANSETRON INJ 2 MG/ML 2 ML VIAL IV PRN (14:00)
[2024-11-18] MEDS ORDERED: ALBUTEROL HFA 8 GM INHALER INH PRN (14:00)
[2024-11-18] MEDS ORDERED: MoRPHine SULFATE 2 MG/ML CARP IV PRN (14:00)
[2024-11-18] MEDS ORDERED: DICLOFENAC SOD 1% GEL 100 GM TUBE EXT PRN (14:00)
[2024-11-18] MEDS ORDERED: NITROGLYCERIN SL 0.4 MG/TAB TAB SL PRN (14:00)
[2024-11-18] MEDS: MAGNESIUM SULFATE / D5W 1 GM/100 ML BAG IV ONE (14:23)
--- NOTE | 2024-11-18 16:22 | XCELERA ---
[id number]
[2024-11-18] MEDS: PIPERACILLIN/TAZOBACTAM 4.5 GM/100 ML BAG IV ONE (16:46)
[2024-11-18 17:27] LABS: Anion Gap 11.0 (3-11); Blood Urea Nitrogen 15.0 mg/dl (6-23); Calcium 9.1 mg/dl (8.6-10.3); Carbon Dioxide 24.0 mmol/L (21-32); Chloride 88.0 mmol/L (98-107); Creatinine Clr Calc Pharmacy 60.5 ml/min; Glucose 140.0 mg/dl (70-99(Fasting)); Potassium 3.5 mmol/L (3.5-5.1); Sodium 123.0 mmol/L (136-145)
[2024-11-18] MEDS: DOCUSATE SODIUM 100 MG CAP PO SCH (20:13)
[2024-11-18] MEDS: APIXABAN 5 MG TABLET PO SCH (20:17)
[2024-11-18] MEDS: FUROSEMIDE 40 MG/4 ML VIAL IV SCH (20:17)
[2024-11-18] MEDS: PIPERACILLIN/TAZOBACTAM 4.5 GM/100 ML BAG IV SCH (20:57)
[2024-11-19 06:56] LABS: Hematocrit (blood only) 40.5 % (42.0-52.0); Hemoglobin 14.3 g/dl (14.0-18.0); Mean Corpuscular Hemoglobin 31.6 pg (25.0-34.0); Mean Corpuscular Volume 89.6 fL (80.0-100.0); Platelet Count 293 K/uL (130-400); RDW Standard Deviation 47.6 fL (36.4-46.3); Red Blood Count 4.52 M/uL (4.70-6.10); White Blood Count 11.20 K/ul (4.8-10.8)
[2024-11-19 07:20] LABS: Anion Gap 11.0 (3-11); Blood Urea Nitrogen 17.0 mg/dl (6-23); Calcium 8.9 mg/dl (8.6-10.3); Carbon Dioxide 26.0 mmol/L (21-32); Chloride 88.0 mmol/L (98-107); Creatinine Clr Calc Pharmacy 56.2 ml/min; Glucose 128.0 mg/dl (70-99(Fasting)); Magnesium 1.8 mg/dl (1.7-2.4); Potassium 3.4 mmol/L (3.5-5.1); Sodium 125.0 mmol/L (136-145)
--- NOTE | 2024-11-19 07:30 | Hospitalist Progress Note ---
Date of Service November 19, 2024 Assessment & Plan (1) Heart failure with reduced ejection fraction: (2) Elevated troponin: (3) Benign prostatic hyperplasia with urinary obstruction: Plan 84-year-old male presents for shortness of breath found to have chest x-ray changes consistent with acute heart failure preserved ejection fraction exacerbation, possible aspiration pneumonia. Patient also severe hyponatremia with a sodium of 120. He is on outpatient diuretic therapy. He however appears volume overloaded on presentation, patient is found have a depressed ejection fraction with an exacerbation of HFrEF. #Acute heart failure reduced ejection fraction. ( this is a change from 2022) Patient appears volume at presentation we will continue diuretic therapy. Will discontinue his gabapentin at this point in time. Patient has a history of atrial fibrillation with tachybradycardia syndrome and a dual-chamber pacemaker. He is currently in a paced rhythm and anticoagulated with apixaban. Repeat echocardiogram shows depressed EF will begin GBMT considerations after appropri ate diuresis may be to substitute Entresto for lisinopril and consider an SGLT we will maintain his metoprolol and if going with Entresto may consider discontinuing hydralazine also. Cardiology consult be undertaken for further advice #Severe hyponatremia. Madelyn does have low serum and urine osmolality, suggesting volume overload and attempts at autocorrection. Urine testing will be skewed because of daily furosemide use. #Elevated troponin these will be trended likely or demand ischemia, for his coronary artery disease will continue on his hypertensive medication treatments which is lisinopril hydralazine and metoprolol. For cardioprotective effects patient is on atorvastatin 40 patient states he stopped aspirin therapy on the recommendation of cardiology when he started his apixaban therapy #BPH patient is currently without urinary symptoms DVT prevention will be as apixaban therapy for his atrial fibrillation Admission and Anticipated Discharge Date Admission Date: November 18, 2024 Subjective Patient says he feels improved but not yet back to baseline. His body weight is down coming towards his typical goal of 173. He says overall he feels about 50% back to his baseline. He has had no chest pain or pressure he still remains mildly short of breath and especially dyspneic on exertion. He still has lower extremity swelling Physical Exam Physical Exam: Patient is overt JVD seems to have improved or almost resolved. He still has bibasilar rales but seems to be less then on day of admission. Cardiac exam is regular without a systolic murmur Results & Data Results & Data Vital Signs (Past 12 Hours) Vital Signs Temp Pulse Pulse Resp BP Pulse Ox O2 Del Method 11/19/24 07:16 97.5 F L 65 18 172/92 H 93 Room Air 11/19/24 07:00 62 11/19/24 04:20 97.9 F 69 20 149/92 H 90 Room Air 11/18/24 23:02 98.2 F 64 18 150/85 H 90 Room Air 11/18/24 21:18 Room Air 11/18/24 19:40 97.3 F L 62 20 153/100 H 95 Room Air Laboratory Results Reviewed CBC reviewed chemistry referred case to cardiology regarding new depressed EF seen on echocardiogram PG Care Time/CCT Total # of Minutes Spent Total Time Spent with Patient: Total time spent is greater than 50% in coordination of care (as documented) at patient's floor/unit and/or counseling patient: Coding Level of Care Code 47385 SUB INP/OBS CARE 3/50MIN Diagnoses Heart failure with reduced ejection fraction I50.20 Elevated troponin R79.89 Benign prostatic hyperplasia with urinary obstruction N40.1; N13.8
[2024-11-19] MEDS: ATORVASTATIN 40 MG TAB PO SCH (08:17)
[2024-11-19] MEDS: MAGNESIUM OXIDE 400 MG TAB PO SCH (08:18)
[2024-11-19] MEDS: MULTIVITAMIN TAB PO SCH (08:18)
[2024-11-19] MEDS: METOPROLOL SUCC 50MG EXT REL TAB PO SCH (08:18)
[2024-11-19] MEDS: FUROSEMIDE 40 MG/4 ML VIAL IV ONE (14:00)
--- NOTE | 2024-11-19 15:05 | Cardiology Consultation ---
Date of Consultation November 19, 2024 Assessment & Plan (1) Heart failure with reduced ejection fraction: (2) Pacemaker: (3) CAD (coronary artery disease): (4) Atrial fibrillation with slow ventricular response: (5) Valvular heart disease: (6) Cardiomyopathy: Plan 1. Acute decompensated heart failure with reduced ejection fraction: Newly diagnosed LV dysfunction. This likely accounts for his presentation. He presented with volume overload but no obvious precipitant. No dietary indiscretion although he seems to follow a high sodium diet. No documented extended arrhythmias. He does not miss any medications. He seems to be responding well to diuresis. Renal function and electrolytes are stable. Hyponatremia improving. It would seem reasonable continue his current dose of diuretic monitoring these elements closely. He does have nearly 100% ventricular pacing. However, the configuration of his device is such that he does not have an apical RV pacing lead and therefore should have a lower risk of cardiomyopathy as a result. Paced morphology on EKG looks favorable. 2. Cardiomyopathy: Unclear etiology. No symptoms suggestive of a recent ischemic event. Cardiac biomarkers flat and essentially unremarkable. No indication of a recent event. I think we will intensify his medical regimen and reassess LV function in a few weeks. We could consider an ischemic evaluation at that time if he has persistently low ejection fraction. He can continue his metoprolol succinate. Will add spironolactone. Will add Jardiance. Entresto is indicated over lisinopril, but I think better control of his blood pressure is worthwhile before stopping lisinopril to facilitate starting Entresto. 3. Atrial fibrillation: Paroxysmal. Currently in a paced atrial rhythm. 4. Dual-chamber permanent pacemaker. Placed for tachybradycardia syndrome. He appears to have normal function. Not interrogated today. 5. Valvular heart disease. He has an element of aortic and mitral regurgitation. Not severe. 6. Coronary disease: He has a remote history of myocardial infarction involving occlusion of the LAD. Preserved LV systolic function until recently. On secondary prevention to include high-dose atorvastatin, Eliquis, lisinopril and metoprolol. History of Present Illness Reason for Consultation: Congestive heart failure Requesting Physician: Shyann Attending Physician: Quentin Boothe MD History of Present Illness The patient is an 82-year-old gentleman with history of coronary disease having had a remote myocardial infarction with occlusion of the LAD. Also known to have paroxysmal atrial fibrillation with slow ventricular response and prior placement of dual-chamber permanent pacemaker in 2022. He was admitted to the hospital with symptoms of progressive dyspnea. The patient states that perhaps over the course of a week he began to notice some lower extremity edema and worsening shortness of breath. Perhaps a mild element of orthopnea as well. He did not endorse symptoms of chest discomfort. He did not have dizziness or lightheadedness. He generally not aware of any palpitations. He presents to the hospital for an evaluation and was felt to have an element of decompensated heart failure. Diuresis was initiated. Patient states that he has not experienced any dietary indiscretion or missed any medications. He is generally not aware of atrial fibrillation but occasionally states that he has "bad days" which he attributes to atrial fibrillation. This generally refers to some nonspecific symptoms. He does not seem to have dizziness or lightheadedness. Generally does not have lower ex tremity edema. Again, no history of chest discomfort or symptoms similar to that which he experienced during his myocardial infarction quite remotely. When he is feeling well he performs outdoor activities. He tends to be limited by some orthopedic disease. He generally does not have limiting dyspnea. No exertional chest pain. Currently feeling better than he did yesterday. Breathing is improved. Edema is also improved Allergies Allergy/AdvReac Type Severity Reaction Status Date / Time No Known Allergies Allergy Verified 10/25/24 13:30 Home Medications Medication Instructions Recorded Confirmed Type docusate sodium 100 mg capsule 100 mg PO HS 10/03/18 11/18/24 History (Colace) multivitamin 0.5 cap PO QAM 10/03/18 11/18/24 History polyethylene glycol 3350 17 gram 17 g PO QAM PRN Constipation 10/03/18 11/18/24 History oral powder packet (Miralax) acetaminophen 325 mg tablet 650 mg PO Q6H PRN Pain 10/19/18 11/18/24 History (Tylenol) albuterol sulfate 90 mcg/actuation 2 puff inhalation QID PRN 12/03/22 11/18/24 Rx aerosol inhaler shortness of breath or wheezing #6.7 grams furosemide 20 mg tablet 40 mg PO QAM 04/13/23 11/18/24 History atorvastatin 40 mg tablet 40 mg PO DAILY #90 tabs 08/02/24 07/06/25 Rx hydralazine 25 mg tablet 25 mg PO BID #180 tabs 05/04/24 11/18/24 Rx metoprolol succinate 50 mg 50 mg PO DAILY #90 tabs 05/04/24 11/18/24 Rx tablet,extended release 24 hr lisinopril 20 mg tablet 20 mg PO BID #180 tabs 06/22/24 11/18/24 Rx diclofenac sodium 1 % topical gel 2 g topical TID PRN Pain 10/04/24 11/18/24 History (Voltaren Arthritis Pain) gabapentin 300 mg capsule 300 mg PO BID #60 caps 10/04/24 11/18/24 Rx magnesium oxide 400 mg PO DAILY 10/04/24 11/18/24 History apixaban 5 mg tablet (Eliquis) 5 mg PO BID 11/18/24 11/18/24 History Patient History Medical History Hyponatremia H/o Lyme disease Anemia Diverticulosis of colon History of malignant melanoma of skin Foot drop Myocardial Infarction Surgical History Hx of tonsillectomy History of carpal tunnel release Fusion of spine History of prostate biopsy Hx of transurethral resection of prostate History of colonoscopy History of cardiac cath Family History Father Myocardial infarction Brother Myocardial infarction Denies family history of Ovarian cancer Prostate cancer Breast cancer Colorectal cancer Social History Smoking Status: Never smoker Second Hand Exposure: No; Do You Dip or Chew Tobacco: No; Hx Alcohol Use: Yes Alcohol type: beer Alcohol Intake Frequency: Monthly or Less Alcohol Intake Frequency Comment: When he goes to camp. Hx Substance Use: No Preferred Language: Andorran Communication Ability: Effective Visual Impairment: No Limitations Hearing Ability: Use of Hearing Aid Bumboater Required: No Beliefs That Will Affect Care: None marital status: Current Living Situation: Spouse current occupational status: retired How many Children do You have: 2 Feels Safe at Home: Yes Childhood Exposure to Second-Hand Smoke: Yes Diet: regular caffeine: Yes during the past year weight has: remained stable Dental Care, Regularly: Yes Physical Activity Frequency: 1-2 Times per Week Seatbelt Use: always Sunscreen Use: Yes Do you think of yourself as: straight/heterosexual Sexual Activity: has been sexually active, but not for at least 12 months Gender Identity: Male Assistive Devices: Brace/Splint/Immobilizer, Cane and Walker Review of Systems Review of Systems: Per HPI Physical Exam Physical Exam: The patient is alert and oriented. Mood and affect appeared normal. He answered all questions appropriately. HEENT: Pupils are equal and reactive to light and accommodation. Extraocular movements are intact. The sclerae are anicteric. Neuro: Cranial nerves intact Chest: Well-healed device implants in the left upper pectoral area Lungs: Some bibasilar crackles. No expiratory wheezing. Normal respiratory effort. Cardiac: Heart demonstrates a regular rate and rhythm. Normal S1 and S2. No murmurs on examination. Pulses: The patient has palpable radial pulses bilaterally that are equal in intensity Extremities: There was no evidence of hypoperfusion. There is no cyanosis or clubbing. Mild to moderate lower extremity edema Skin: I did not appreciate any rashes on examination today. Results & Data Vital Signs (Past 12 Hours) Vital Signs Temp Pulse Pulse Resp BP Pulse Ox O2 Del Method 11/19/24 10:43 36.3 C L 75 16 163/111 H 90 Room Air 11/19/24 07:16 36.4 C L 65 18 172/92 H 93 Room Air 11/19/24 07:00 62 11/19/24 04:20 36.6 C 69 20 149/92 H 90 Room Air Laboratory Results Abnormal Lab Results 11/18/24 11/18/24 11/19/24 16:56 22:35 06:00 WBC 11.20 H RBC 4.52 L Hgb 14.3 Hct 40.5 L MCV 89.6 MCH 31.6 MCHC 35.3 RDW Std Deviation 47.6 H RDW Coeff of Magdalena 14.6 H Plt Count 293 MPV 9.0 L Sodium 123 L 125 L Potassium 3.5 3.4 L Chloride 88 L 88 L Carbon Dioxide 24 26 Anion Gap 11 11 BUN 15 17 Creatinine 0.93 0.98 Est Cr Clr Drug Dosing 60.5 56.2 eGFR 81.98 76.99 BUN/Creatinine Ratio 16.1 17.3 Glucose 140 H 128 H Calcium 9.1 8.9 Magnesium 1.8 Troponin I High Sens 21.2 H 24.8 H 28.1 H Diagnostic Findings Echocardiogram 11/18/2024: Moderately reduced LV systolic function ejection fraction 35 to 40%. Mildly dilated right ventricle with reduced function. Moderate mitral regurgitation. Mild aortic regurgitation. Elevated estimated pulmonary pressures. Borderline dilated aortic root at 3.9 cm. PG Care Time/CCT Total # of Minutes Spent Total Time Spent with Patient: Total time spent is greater than 50% in coordination of care (as documented) at patient's floor/unit and/or counseling patient: Coding Level of Care Code 35599 INT INP/OBS CARE 3/75MIN Diagnoses Heart failure with reduced ejection fraction I50.20 Pacemaker Z95.0 Coronary artery disease involving [place] coronary artery of [place] heart without angina pectoris I25.10 Coronary Disease-Associated Artery/Lesion type: [place] artery [place] vs. transplanted heart: [place] heart Associated angina: without angina Atrial fibrillation with slow ventricular response I48.91 Valvular heart disease I38 Cardiomyopathy I42.9 (3) CAD (coronary artery disease) Coronary Disease-Associated Artery/Lesion type: [place] artery [place] vs. transplanted heart: [place] heart Associated angina: without angina Qualified Code(s): I25.10 - Atherosclerotic heart disease of [place] coronary artery without angina pectoris
[2024-11-19] MEDS: SPIRONOLACTONE 25 MG TAB PO SCH (18:28)
[2024-11-20] MEDS: ACETAMINOPHEN 325 MG TAB PO PRN (05:14)
[2024-11-20 06:18] LABS: Hematocrit (blood only) 40.6 % (42.0-52.0); Hemoglobin 14.5 g/dl (14.0-18.0); Mean Corpuscular Hemoglobin 31.9 pg (25.0-34.0); Mean Corpuscular Volume 89.2 fL (80.0-100.0); Platelet Count 298 K/uL (130-400); RDW Standard Deviation 47.0 fL (36.4-46.3); Red Blood Count 4.55 M/uL (4.70-6.10); White Blood Count 16.02 K/ul (4.8-10.8)
[2024-11-20 06:38] LABS: Anion Gap 12.0 (3-11); Blood Urea Nitrogen 20.0 mg/dl (6-23); Calcium 8.7 mg/dl (8.6-10.3); Carbon Dioxide 24.0 mmol/L (21-32); Chloride 89.0 mmol/L (98-107); Creatinine Clr Calc Pharmacy 54.5 ml/min; Glucose 158.0 mg/dl (70-99(Fasting)); Magnesium 1.5 mg/dl (1.7-2.4); Potassium 3.2 mmol/L (3.5-5.1); Sodium 125.0 mmol/L (136-145)
--- NOTE | 2024-11-20 07:24 | Hospitalist Progress Note ---
Date of Service November 20, 2024 Assessment & Plan (1) Heart failure with reduced ejection fraction: (2) Elevated troponin: (3) Benign prostatic hyperplasia with urinary obstruction: Plan 84-year-old male presents for shortness of breath found to have chest x-ray changes consistent with acute heart failure preserved ejection fraction exacerbation, possible aspiration pneumonia. Patient also severe hyponatremia with a sodium of 120. He is on outpatient diuretic therapy. He however appears volume overloaded on presentation, patient is found have a depressed ejection fraction with an exacerbation of HFrEF. #Acute heart failure reduced ejection fraction. ( this is a change from 2022) Patient appears volume overloaded continue diuretic therapy. Additional parenteral dose ordered the evening of 11/20 will discontinue his gabapentin at this point in time. Patient has a history of atrial fibrillation with tachybradycardia syndrome and a dual-chamber pacemaker. He is currently in a paced rhythm and anticoagulated with apixaban. Repeat echocardiogram shows depressed EF will begin GBMT considerations after appropriate blood pressure control may be to substitute Entresto for lisinopril( with appropriate sarai inhibitor washout before). Addition of spironolactone and Jardiance , maintain his metoprolol additional Lasix dosing on 7 significant MOD hyponatremia, hypokalemia and hypomagnesemia continue to augment electrolytes continue oral urea add additional diuresis # Improved now to moderate hyponatremia. Improving but still low #Elevated troponin secondary to demand ischemia, for his coronary artery disease will continue on his hypertensive medication treatments which is lisinopril hydralazine and metoprolol. For cardioprotective effects patient is on atorvastatin 40 patient states he stopped aspirin therapy on the recommendation of cardiology when he started his apixaban therapy #Complaints of knee pain and lower extremity cramping. Augmenting electrolytes however concerned about gout will give 1 dose of colchicine and check a uric acid in the morning #BPH patient is currently without urinary symptoms DVT prevention will be as apixaban therapy for his atrial fibrillation Admission and Anticipated Discharge Date Admission Date: November 18, 2024 Subjective Patient is feeling better bothered by leg cramps and knee pain. Still with significant moderate hyponatremia. Appreciate cardiology's insight into addressing medical management for his newfound heart failure reduced ejection fraction Physical Exam Physical Exam: Patient still 1+ bilateral lower extremity edema. Knees are without effusions or erythema. Cardiac exam is regular with a systolic murmur lungs are with diminished breath sounds at bases a few crackles Results & Data Results & Data Vital Signs (Past 12 Hours) Vital Signs Temp Pulse Resp BP Pulse Ox O2 Del Method 11/20/24 02:42 97.9 F 67 18 140/85 92 Room Air 11/19/24 22:28 97.9 F 66 18 150/94 H 93 Room Air 11/19/24 20:21 Room Air 11/19/24 19:54 97.9 F 67 20 143/85 H 93 Room Air Laboratory Results Reviewed CBC reviewed chemistry reviewed magnesium Augmentin magnesium Ordered additional Lasix for hypervolemic hyponatremia continue urea PG Care Time/CCT Total # of Minutes Spent Total Time Spent with Patient: Total time spent is greater than 50% in coordination of care (as documented) at patient's floor/unit and/or counseling patient: Coding Level of Care Code 33233 SUB INP/OBS CARE 3/50MIN Diagnoses Heart failure with reduced ejection fraction I50.20 Elevated troponin R79.89 Benign prostatic hyperplasia with urinary obstruction N40.1; N13.8
[2024-11-20] MEDS: POTASSIUM CHLORIDE / WTR 10 MEQ/100 ML PLCT IV SCH (07:57)
[2024-11-20] MEDS: MAGNESIUM SULFATE / D5W 1 GM/100 ML BAG IV SCH ×2 (07:57→18:31)
[2024-11-20] MEDS: POLYETHYLENE (MIRALAX) 17 GM PACK PO PRN (07:58)
[2024-11-20] MEDS: FUROSEMIDE 40 MG/4 ML VIAL IV SCH (08:02)
[2024-11-20] MEDS: EMPAGLIFLOZIN 10 MG TAB PO SCH (08:04)
[2024-11-20] MEDS: POTASSIUM CHLORIDE CRTAB 20 MEQ TABCR PO SCH (08:06)
[2024-11-20] MEDS: UREA (UREA-NA) 15 GM PACK PO SCH (10:07)
--- NOTE | 2024-11-20 10:27 | Cardiology Progress Note ---
Date of Service November 20, 2024 Assessment & Plan (1) Heart failure with reduced ejection fraction: (2) Pacemaker: (3) CAD (coronary artery disease): (4) Atrial fibrillation with slow ventricular response: (5) Valvular heart disease: (6) Cardiomyopathy: Plan 1. Acute decompensated heart failure with reduced ejection fraction: Improving. He is affecting good diuresis. Complicated to some degree by electrolyte disturbances. Renal function normal. They will continue with current diuretic regimen. 2. Cardiomyopathy: Unclear etiology. No symptoms suggestive of a recent ischemic event. Started on spironolactone and Jardiance. Blood pressure improved today. We may have an opportunity to stop lisinopril during this hospitalization and start Entresto. 3. Atrial fibrillation: Paroxysmal. Currently in a paced atrial rhythm. 4. Dual-chamber permanent pacemaker. Placed for tachybradycardia syndrome. He appears to have normal function. Not interrogated today. 5. Valvular heart disease. He has an element of aortic and mitral regurgitation. Not severe. 6. Coronary disease: He has a remote history of myocardial infarction involving occlusion of the LAD. Preserved LV systolic function until recently. On secondary prevention to include high-dose atorvastatin, Eliquis, lisinopril and metoprolol. Admission and Anticipated Discharge Date Admission Date: November 18, 2024 Subjective This morning patient claims to be feeling well better. His breathing is certainly improved. He did have some cramps last night which made it hard for him to sleep. Review of Systems Review of Systems: Per HPI Physical Exam Physical Exam: The patient is alert and oriented. Mood and affect appeared normal. He answered all questions appropriately. HEENT: Pupils are equal and reactive to light and accommodation. Extraocular movements are intact. The sclerae are anicteric. Neuro: Cranial nerves intact Chest: Well-healed device implants in the left upper pectoral area Lungs: Some bibasilar crackles. No expiratory wheezing. Normal respiratory effort. Cardiac: Heart demonstrates a regular rate and rhythm. Normal S1 and S2. No murmurs on examination. Pulses: The patient has palpable radial pulses bilaterally that are equal in intensity Extremities: There was no evidence of hypoperfusion. There is no cyanosis or clubbing. Mild to moderate lower extremity edema Skin: I did not appreciate any rashes on examination today. Results & Data Vital Signs (Past 12 Hours) Vital Signs Temp Pulse Resp BP Pulse Ox O2 Del Method 11/20/24 07:32 37.0 C 63 18 109/58 L 94 Room Air 11/20/24 02:42 36.6 C 67 18 140/85 92 Room Air 11/19/24 22:28 36.6 C 66 18 150/94 H 93 Room Air Laboratory Results Abnormal Lab Results 11/20/24 05:52 WBC 16.02 H RBC 4.55 L Hgb 14.5 Hct 40.6 L MCV 89.2 MCH 31.9 MCHC 35.7 RDW Std Deviation 47.0 H RDW Coeff of [place] 14.6 H Plt Count 298 MPV 8.8 L Sodium 125 L Potassium 3.2 L Chloride 89 L Carbon Dioxide 24 Anion Gap 12 H BUN 20 Creatinine 1.01 Est Cr Clr Drug Dosing 54.5 eGFR 74.25 BUN/Creatinine Ratio 19.8 Glucose 158 H Calcium 8.7 Magnesium 1.5 L PG Care Time/CCT Total # of Minutes Spent Total Time Spent with Patient: Total time spent is greater than 50% in coordination of care (as documented) at patient's floor/unit and/or counseling patient: Coding Level of Care Code 53960 SUB INP/OBS CARE 2/35MIN Diagnoses Heart failure with reduced ejection fraction I50.20 Pacemaker Z95.0 Coronary artery disease involving [place] coronary artery of [place] heart without angina pectoris I25.10 Coronary Disease-Associated Artery/Lesion type: [place] artery [place] vs. transplanted heart: [place] heart Associated angina: without angina Atrial fibrillation with slow ventricular response I48.91 Valvular heart disease I38 Cardiomyopathy I42.9 (3) CAD (coronary artery disease) Coronary Disease-Associated Artery/Lesion type: [place] artery [place] vs. transplanted heart: [place] heart Associated angina: without angina Qualified Code(s): I25.10 - Atherosclerotic heart disease of [place] coronary artery without angina pectoris
[2024-11-20 15:48] LABS: Anion Gap 11.0 (3-11); Blood Urea Nitrogen 37.0 mg/dl (6-23); Calcium 9.1 mg/dl (8.6-10.3); Carbon Dioxide 27.0 mmol/L (21-32); Chloride 87.0 mmol/L (98-107); Creatinine Clr Calc Pharmacy 42.4 ml/min; Glucose 160.0 mg/dl (70-99(Fasting)); Potassium 3.6 mmol/L (3.5-5.1); Sodium 125.0 mmol/L (136-145)
[2024-11-20] MEDS: FUROSEMIDE 40 MG/4 ML VIAL IV ONE (18:32)
[2024-11-20] MEDS: COLCHICINE 0.6 MG TAB PO ONE (20:40)
[2024-11-21 06:14] LABS: Hematocrit (blood only) 41.2 % (42.0-52.0); Hemoglobin 14.9 g/dl (14.0-18.0); Mean Corpuscular Hemoglobin 32.4 pg (25.0-34.0); Mean Corpuscular Volume 89.6 fL (80.0-100.0); Platelet Count 307 K/uL (130-400); RDW Standard Deviation 47.3 fL (36.4-46.3); Red Blood Count 4.60 M/uL (4.70-6.10); White Blood Count 14.98 K/ul (4.8-10.8)
[2024-11-21 06:30] LABS: Anion Gap 13.0 (3-11); Blood Urea Nitrogen 43.0 mg/dl (6-23); Calcium 9.3 mg/dl (8.6-10.3); Carbon Dioxide 26.0 mmol/L (21-32); Chloride 88.0 mmol/L (98-107); Creatinine Clr Calc Pharmacy 41.8 ml/min; Glucose 144.0 mg/dl (70-99(Fasting)); Magnesium 2.3 mg/dl (1.7-2.4); Potassium 3.4 mmol/L (3.5-5.1); Sodium 127.0 mmol/L (136-145); Uric Acid 3.6 mg/dl (2.6-7.2)
[2024-11-21] MEDS: POTASSIUM CHLORIDE CRTAB 20 MEQ TABCR PO SCH (09:22)
--- NOTE | 2024-11-21 13:27 | Cardiology Progress Note ---
Date of Service November 21, 2024 Assessment & Plan (1) Heart failure with reduced ejection fraction: (2) Pacemaker: (3) CAD (coronary artery disease): (4) Atrial fibrillation with slow ventricular response: (5) Valvular heart disease: (6) Cardiomyopathy: Plan 1. Acute decompensated heart failure with reduced ejection fraction: He continues to diurese quite well. Symptoms continue to improve. Renal function stable. 2. Cardiomyopathy: Unclear etiology. On beta-blockade, spironolactone and Jardiance. I think we have an opportunity to stop his lisinopril. Will wait 2 days and start Entresto. 3. Atrial fibrillation: Paroxysmal. Currently in a paced atrial rhythm. Apixaban restarted. 4. Dual-chamber permanent pacemaker. Placed for tachybradycardia syndrome. He appears to have normal function. Not interrogated today. 5. Valvular heart disease. He has an element of aortic and mitral regurgitation. Not severe. 6. Coronary disease: He has a remote history of myocardial infarction involving occlusion of the LAD. Preserved LV systolic function until recently. On secondary prevention to include high-dose atorvastatin, Eliquis, lisinopril and metoprolol. I will stop his lisinopril and anticipate starting Entresto in a couple of days. He can continue IV diuresis while in inpatient. He could be started on his home dose of Lasix at the time of discharge with close monitoring of his weight and follow-up in our clinic. Alternatively, his dose can be increased to 80 mg daily and close follow-up arranged. Admission and Anticipated Discharge Date Admission Date: November 18, 2024 Subjective This afternoon the patient claimed to be feeling better. He states that his breathing improved almost immediately after admission and initial diuresis. No breathing difficulty currently. He was ambulatory to the bathroom earlier today. No associated dizziness or chest pain. Some weakness in the legs. Still some lower extremity edema. Review of Systems Review of Systems: Per HPI Physical Exam Physical Exam: The patient is alert and oriented. Mood and affect appeared normal. He answered all questions appropriately. HEENT: Pupils are equal and reactive to light and accommodation. Extraocular movements are intact. The sclerae are anicteric. Neuro: Cranial nerves intact Chest: Well-healed device implants in the left upper pectoral area Lungs: Normal respiratory effort. No expiratory wheezing. Cardiac: Heart demonstrates a regular rate and rhythm. Normal S1 and S2. No murmurs on examination. Pulses: The patient has palpable radial pulses bilaterally that are equal in intensity Extremities: There was no evidence of hypoperfusion. There is no cyanosis or clubbing. Mild lower extremity edema. Skin: I did not appreciate any rashes on examination today. Results & Data Vital Signs (Past 12 Hours) Vital Signs Temp Pulse Pulse Resp BP Pulse Ox O2 Del Method 11/21/24 12:00 36.6 C 75 18 155/74 H 98 Room Air 11/21/24 09:10 Room Air 11/21/24 08:00 36.7 C 74 16 149/76 H 96 Room Air 11/21/24 05:38 64 11/21/24 02:43 36.6 C 69 18 142/83 H 90 Room Air Laboratory Results Abnormal Lab Results 11/20/24 11/21/24 15:14 05:45 WBC 14.98 H RBC 4.60 L Hgb 14.9 Hct 41.2 L MCV 89.6 MCH 32.4 MCHC 36.2 H RDW Std Deviation 47.3 H RDW Coeff of [place] 14.6 H Plt Count 307 MPV 8.8 L Sodium 125 L 127 L Potassium 3.6 3.4 L Chloride 87 L 88 L Carbon Dioxide 27 26 Anion Gap 11 13 H BUN 37 H 43 H Creatinine 1.30 1.30 Est Cr Clr Drug Dosing 42.4 41.8 eGFR 54.85 54.85 BUN/Creatinine Ratio 28.5 H 33.1 H Glucose 160 H 144 H Uric Acid 3.6 Calcium 9.1 9.3 Magnesium 2.3 PG Care Time/CCT Total # of Minutes Spent Total Time Spent with Patient: Total time spent is greater than 50% in coordination of care (as documented) at patient's floor/unit and/or counseling patient: Coding Level of Care Code 85551 SUB INP/OBS CARE 2/35MIN Diagnoses Heart failure with reduced ejection fraction I50.20 Pacemaker Z95.0 Coronary artery disease involving [place] coronary artery of [place] heart without angina pectoris I25.10 Coronary Disease-Associated Artery/Lesion type: [place] artery [place] vs. transplanted heart: [place] heart Associated angina: without angina Atrial fibrillation with slow ventricular response I48.91 Valvular heart disease I38 Cardiomyopathy I42.9 (3) CAD (coronary artery disease) Coronary Disease-Associated Artery/Lesion type: [place] artery [place] vs. transplanted heart: [place] heart Associated angina: without angina Qualified Code(s): I25.10 - Atherosclerotic heart disease of [place] coronary artery without angina pectoris
--- NOTE | 2024-11-21 14:41 | Hospitalist Progress Note ---
Date of Service November 21, 2024 Assessment & Plan (1) Heart failure with reduced ejection fraction: (2) Elevated troponin: (3) Benign prostatic hyperplasia with urinary obstruction: Plan 84-year-old male presents for shortness of breath found to have chest x-ray changes consistent with acute heart failure preserved ejection fraction exacerbation, possible aspiration pneumonia. Patient also severe hyponatremia with a sodium of 120. He is on outpatient diuretic therapy. He however appears volume overloaded on presentation, patient is found have a depressed ejection fraction with an exacerbation of HFrEF. #Acute heart failure reduced ejection fraction. ( this is a change from 2022) Patient appears volume overloaded continue diuretic therapy. Additional parenteral dose ordered the evening of 11/20 will discontinue his gabapentin at this point in time. Patient has a history of atrial fibrillation with tachybradycardia syndrome and a dual-chamber pacemaker. He is currently in a paced rhythm and anticoagulated with apixaban. Repeat echocardiogram shows depressed EF will begin GBMT considerations after appropriate blood pressure control may be to substitute Entresto for lisinopril( with appropriate sarai inhibitor washout before). Addition of spironolactone and Jardiance , maintain his metoprolol additional Lasix dosing on 7 significant MOD hyponatremia, hypokalemia and hypomagnesemia continue to augment electrolytes continue oral urea add additional diuresis second dose 11/21 # Improved now to moderate hyponatremia. Improving but still low #Elevated troponin secondary to demand ischemia, for his coronary artery disease will continue on his hypertensive medication treatments which is lisinopril hydralazine and metoprolol. For cardioprotective effects patient is on atorvastatin 40 patient states he stopped aspirin therapy on the recommendation of cardiology when he started his apixaban therapy #Complaints of knee pain and lower extremity cramping. Augmenting electrolytes however concerned about gout will give 1 dose of colchicine and check a uric acid in the morning #BPH patient is currently without urinary symptoms DVT prevention will be as apixaban therapy for his atrial fibrillation Admission and Anticipated Discharge Date Admission Date: November 18, 2024 Subjective Pt feels improved but he understands that his labs are off, will continue to diurese in attempts to help hyponatremia less shortness of breath, ambulating in [address] Physical Exam Physical Exam: pleasant no complaints lower extremity edema lungs are diminished at bases cardiac is regular Results & Data Results & Data Vital Signs (Past 12 Hours) Vital Signs Temp Pulse Pulse Resp BP Pulse Ox O2 Del Method 07/09/25 12:00 97.9 F 75 18 155/74 H 98 Room Air 11/21/24 09:10 Room Air 11/21/24 08:00 98.1 F 74 16 149/76 H 96 Room Air 11/21/24 05:38 64 11/21/24 02:43 97.9 F 69 18 142/83 H 90 Room Air Laboratory Results review cbc review chemsitry PG Care Time/CCT Total # of Minutes Spent Total Time Spent with Patient: Total time spent is greater than 50% in coordination of care (as documented) at patient's floor/unit and/or counseling patient: Coding Level of Care Code 19866 SUB INP/OBS CARE 3/50MIN Diagnoses Heart failure with reduced ejection fraction I50.20 Elevated troponin R79.89 Benign prostatic hyperplasia with urinary obstruction N40.1; N13.8
[2024-11-21] MEDS: FUROSEMIDE 40 MG/4 ML VIAL IV ONE (15:49)
[2024-11-21 20:12] VITALS: RESP 18
[2024-11-21] MEDS: TAMSULOSIN HCL 0.4 MG CAP PO SCH (21:21)
[2024-11-22 03:00] VITALS: O2SAT 92
[2024-11-22 07:47] LABS: Hematocrit (blood only) 42.0 % (42.0-52.0); Hemoglobin 14.8 g/dl (14.0-18.0); Mean Corpuscular Hemoglobin 31.8 pg (25.0-34.0); Mean Corpuscular Volume 90.3 fL (80.0-100.0); Platelet Count 347 K/uL (130-400); RDW Standard Deviation 49.0 fL (36.4-46.3); Red Blood Count 4.65 M/uL (4.70-6.10); White Blood Count 13.29 K/ul (4.8-10.8)
[2024-11-22 07:59] VITALS: BP 109/61; PULSE 64; TEMP 97.9
[2024-11-22 08:09] LABS: Anion Gap 11.0 (3-11); Blood Urea Nitrogen 66.0 mg/dl (6-23); Calcium 9.4 mg/dl (8.6-10.3); Carbon Dioxide 29.0 mmol/L (21-32); Chloride 88.0 mmol/L (98-107); Creatinine Clr Calc Pharmacy 34.2 ml/min; Glucose 173.0 mg/dl (70-99(Fasting)); Potassium 3.3 mmol/L (3.5-5.1); Sodium 128.0 mmol/L (136-145)
--- NOTE | 2024-11-22 14:34 | Discharge Summary ---
Discharge Summary Date of Service November 22, 2024 Principal Dx & Hospital Course #1 = Principal Diagnosis (1) Heart failure with reduced ejection fraction: (2) Elevated troponin: (3) Benign prostatic hyperplasia with urinary obstruction: Plan 84-year-old male presents for shortness of breath found to have chest x-ray changes consistent with acute heart failure, repeat echo shows reduced ejection fraction. Patient also severe hyponatremia with a sodium of 120. He is on outpatient diuretic therapy. He however appears volume overloaded on presentation, patient is found have a depressed ejection fraction with an exacerbation of HFrEF. #Acute heart failure reduced ejection fraction. ( this is a change from 2022) Patient appears volume overloaded continue diuretic therapy. 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 He is currently in a paced rhythm and anticoagulated with apixaban. Repeat echocardiogram shows depressed EF significant hyponatremia, hypokalemia and hypomagnesemia electrolytes replaced, repeat outpt labs 11/24/24 # Improved now to moderate hyponatremia #Elevated troponin secondary to demand ischemia, for his coronary artery disease will continue on his hypertensive medication treatments which is lisinopril hydralazine and metoprolol. For cardioprotective effects patient is on atorvastatin 40 #Complaints of knee pain and lower extremity cramping. uric acid normal #BPH patient is currently with urinary symptoms, had retention requiring st cath, started on flomax DVT prevention will be as apixaban therapy for his atrial fibrillation Notes For Next Care Provider will need to follow outpt labs, maybe continued discussion regarding BPH Admission HPI Per Admitting Provider 84-year-old male presenting with shortness of breath found to have what appears to be heart failure possibly right-sided pneumonia and severe hyponatremia. Patient states that he began having increasing shortness of breath and peripheral swelling after having his gabapentin increased at his last pain management appointment. Likely similar October 04. Patient has a history of A-fib with tachybradycardia syndrome requiring a dual-chamber pacemaker, coronary artery disease hypertension BPH prediabetes and lumbar stenosis. Patient's was very concerned about him and wanted to call the ambulance with the patient refused C7 was brought in by private vehicle. Patient was given furosemide and magnesium in the emergency department and recommended for admission. Discharge Exam Pleasant, slight rales at bases and trace edema to legs Discharge Plan Discharge Items Patient Disposition: Home - Self-Care Reason For Visit: ACUTE HFPEF,SEVERE HYPONATREMIA Discharge Diagnosis: acute heart failure reduced ejection fraction low blood sodium level Condition on Discharge: Fair Activity: Resume your previous activity Non-emergency contact: Primary Care Provider and Auto Top Mechanic Call non-emergency contact if: you have any medication questions Follow-up/Referrals: Huyen Dickens CRNP [Primary Care Provider] - 11/26/24 10:30 am (Primary care hosppital follow up scheduled on 11/26/24 at 10:30 with Huyen Dickens) Diet: Heart Healthy Ambulatory Orders: Basic Metabolic Panel (Routine) Timeframe: 2 Days Location: Determined by Patient Ordered By: Quentin Stokes Attending Provider Instructions: please watch your fluid and salt intake, eat less that 2000mg of salt a day follow up with cardiology Call 911 and go to the Emergency Room if: * You have tightness or pain in your chest that does not go away with rest or Nitroglycerin * You are very short of breath even with rest Call your doctor if any of the following symptoms or problems start or get worse: * Shortness of breath or difficulty breathing * Wake up at night short of breath * Chest pain * Cough * Swelling of your hands, fee, or legs * More fatigued or tired with your normal activity * Palpitations - sudden fast heart beats WEIGHT * Weigh yourself every morning after using the bathroom. * Use the same scale. * Wear the same amount of clothing. * Write your weight down on your chart. * Call your doctor if you gain more than 2-3 pounds in 1-2 days. MEDICATIONS * Use this discharge instruction sheet for instructions. * Take your medications at the time your doctor ordered. * Do not skip a dose of your medicines. * If you miss a dose of medicine, take as soon as possible, but DO NOT DOUBLE A DOSE. * Read your medicine information when you get home. * Know all of the side effects of your medicine. * Call your doctor's office if you have any side effects. * Be sure all of your doctors know what medicine and herbs you take (including cold, flu, and herbal medicine). * Pain Medicine: If you do not get relief from your pain, please call your doctor for help. Take the following with you to your follow-up doctor appointments: * Weight Chart * Medication List * List of questions Do not drink excessive alcohol, beer or wine. Pending Studies at Discharge: No Stand-Alone Forms: My [facility], Smoking Cessation Medications and DC Order Prescriptions: New spironolactone 25 mg Tablet 25 mg PO QAM Qty: 30 5RF tamsulosin 0.4 mg Capsule 0.4 mg PO HS Qty: 30 5RF Jardiance 10 mg Tablet 10 mg PO DAILY Qty: 30 5RF Continued diclofenac sodium [Voltaren Arthritis Pain] 1 % gel 2 g topical TID PRN (Reason: Pain) Rx Instructions: apply to single elbow, wrist or hand; for hand includes palm/fingers/back of hand albuterol sulfate 90 mcg/actuation HFA aerosol inhaler 2 puff inhalation QID PRN (Reason: shortness of breath or wheezing) Qty: 6.7 3RF furosemide 20 mg tablet 40 mg PO QAM magnesium oxide 400 mg magnesium capsule 400 mg PO DAILY atorvastatin 40 mg tablet 40 mg PO DAILY Qty: 90 3RF Rx Instructions: pt transitioning to this statin metoprolol succinate 50 mg tablet extended release 24 hr 50 mg PO DAILY Qty: 90 3RF polyethylene glycol 3350 [Miralax] 17 gram Powder In Packet 17 g PO QAM PRN (Reason: Constipation) docusate sodium [Colace] 100 mg Capsule 100 mg PO HS multivitamin Capsule 0.5 cap PO QAM acetaminophen [Tylenol] 325 mg Tablet 650 mg PO Q6H PRN (Reason: Pain) Eliquis 5 mg tablet 5 mg PO BID Patient Comments: 11/18- per pt last time he took was on the 3rd. Stopped due to upcoming procedure on 11/19 Discontinued gabapentin 300 mg capsule 300 mg PO BID Qty: 60 3RF Patient Comments: 11/18- per pt he hasn't taking medication in a couple days due to fluid retention in leg hydralazine 25 mg tablet 25 mg PO BID Qty: 180 2RF lisinopril 20 mg tablet 20 mg PO BID Qty: 180 2RF Discharge Orders: Discharge Order (Routine); Ordered 11/22/24 Ordered By: Quentin Boothe Admission Data Admit Date/Time: 11/18/24 12:57 Attending Provider: Quentin Boothe Admit Provider: Quentin Boothe Primary Care Provider: Huyen Dickens Other Providers: Quentin Boothe; Edward Montgomery; Sravanthi Castle Other Interventions: Discharge Summary Assessment (RN) Last Done: 11/22/24 10:20 Hospital Stay Data Consultations 11/18/24 12:45 ED Decision to Admit Stat 11/19/24 13:19 Consult Cardiology Routine 11/22/24 09:43 [facility] Referral Routine Pending Results Patient Have Any Pending Studies at Discharge: No Discharge Instructions Given to Patient (Per Discharging Provider) please watch your fluid and salt intake, eat less that 2000mg of salt a day follow up with cardiology Call 911 and go to the Emergency Room if: * You have tightness or pain in your chest that does not go away with rest or Nitroglycerin * You are very short of breath even with rest Call your doctor if any of the following symptoms or problems start or get worse: * Shortness of breath or difficulty breathing * Wake up at night short of breath * Chest pain * Cough * Swelling of your hands, fee, or legs * More fatigued or tired with your normal activity * Palpitations - sudden fast heart beats WEIGHT * Weigh yourself every morning after using the bathroom. * Use the same scale. * Wear the same amount of clothing. * Write your weight down on your chart. * Call your doctor if you gain more than 2-3 pounds in 1-2 days. MEDICATIONS * Use this discharge instruction sheet for instructions. * Take your medications at the time your doctor ordered. * Do not skip a dose of your medicines. * If you miss a dose of medicine, take as soon as possible, but DO NOT DOUBLE A DOSE. * Read your medicine information when you get home. * Know all of the side effects of your medicine. * Call your doctor's office if you have any side effects. * Be sure all of your doctors know what medicine and herbs you take (including cold, flu, and herbal medicine). * Pain Medicine: If you do not get relief from your pain, please call your doctor for help. Take the following with you to your follow-up doctor appointments: * Weight Chart * Medication List * List of questions Do not drink excessive alcohol, beer or wine. Total Time Total Time Spent Total Time Spent (In Minutes): It required greater than 30 minutes to prepare this patient for discharge. Coding Level of Care Code 25797 INP/OBS DISCH >30 MIN Diagnoses Heart failure with reduced ejection fraction I50.20 Elevated troponin R79.89 Benign prostatic hyperplasia with urinary obstruction N40.1; N13.8
[2024-11-22] MEDS ORDERED: APIXABAN 2.5 MG TAB PO SCH (21:00)
== END 2024-11-22 11:41 | disposition home or self-care (01) | DRG 291 ==
LOC: ED 10:42 → 2S 12:57